=== PATIENT | male | born 1995 | race Caucasian/White ===

== ENCOUNTER 2022-08-05 10:43 | Outpatient (REF) | payer OTHER, SELFPAY ==
[2022-08-05 15:00] LABS: Lithium < 0.10 mmol/L (0.60-1.20)
== END 2022-08-05 10:44 | disposition home or self-care (01) ==
LOC: HO.WFDLDS 10:43
PROVIDERS: Visit Provider Nurse Practitioner Family
DX: F31.9 Bipolar disorder, unspecified (principal); Z79.899 Other long term (current) drug therapy
CPT/HCPCS: 36415; 80178

== ENCOUNTER 2022-08-19 10:20 | Outpatient (AMB) | payer OTHER, SELFPAY ==
[2022-08-19 10:30] VITALS: BP 110/64; PULSE 65; RESP 12; TEMP 36.2; O2SAT 99; BMI 30.5
--- NOTE | 2022-08-19 10:30 | A.OFFPC_ITS ---
Vital Signs 08/19/22 10:30 Height 5 ft 6 in Weight 189 lb 2 oz BMI 30.5 BP 110/64 Blood Pressure Location Rt brachial Position Sitting Respiration 12 Pulse 65 Pulse Source Pulse Oximeter Temp 97.2 F Temp Source Temporal Artery Scan Pulse Oximetry (%) 99 Oxygen Delivery Method Room Air Intake Visit Reasons: 2 wks Bipolar Intake Note: Patient states he just got his labs drawn right before appt. Network Intern Required: No Accompanied by: girlfriend Allergies Seasonal Allergies Allergy (Intermediate, Verified 08/19/22 11:09) Itchy Eyes Medication List - Last Reconciled 08/19/22 by Edison Pak CNP levothyroxine 112 mcg PO DAILY lithium carbonate 300 mg PO BEDTIME 30 days loratadine 10 mg PO DAILY propranolol 10 mg PO BID 30 days sertraline 50 mg PO DAILY 90 days testosterone mg implant Tobacco use date assessed: 08/05/22 Dental Screening Dental Screen Date: 08/19/22 Did you have a dental visit in the last 12 months?: Yes Did you have a dental problem in the last 6 months where you did not have access to dental care?: No Was dental information given to patient?: Patient has dentist HPI HPI Comments History of Present Illness Details 27-year-old male,?assigned female at , presents for bipolar and anxiety follow-up He was restarted on lithium 300 mg daily 2 weeks ago after he ran out of the medication for a month and half. He notes he has been taking the medication as prescribed with controlled symptoms. He reports increased energy on the medication which makes it difficulty to fall asleep. He reports current average night sleep of 4-6 hours. He notes that he was sleeping an average of 8 hours nightly while on 900 mg of [place]. He requests an increase of the medication His lithium level was low, less than 0.10 He notes he continues to have weekly therapy for mood disorders He requests physical therapy for intermittent bilateral elbow and knee pain due to hypermobile joints [facility] Medical History (Updated 08/19/22 @ 11:31 by Edison Pak CNP) ADHD Anxiety Bipolar disorder Depression Graves disease Hx of radioactive iodine thyroid ablation Hypermobile joints PTSD (post-traumatic stress disorder) Surgical History H/O mastectomy History of cochlear implant Family History Mother Psychiatric disorder Maternal Grandmother Psychiatric disorder Paternal Grandmother Diabetes Maternal Grandfather Psychiatric disorder Family/Other Psychiatric disorder Paternal Grandfather Prostate cancer Paternal Aunt Breast cancer Maternal Uncle Skin cancer Social History Housing: House Patient Tobacco Use Status: Never used Tobacco e-Cigarette/Vaping Use: Currently Using (cannabis vape) service: No Current occupational status: unemployed Cognitive needs: No Hearing needs: Yes Vision needs: No Questionnaire PHQ-9 Over the last 2 weeks, how often have you been bothered by any of the following problems? 1. Little interest or pleasure in doing things: not at all 2. Feeling down, depressed, or hopeless: not at all 3. Trouble falling or staying asleep, or sleeping too much: more than half the days 4. Feeling tired or having little energy: not at all 5. Poor appetite or overeating: not at all 6. Feeling bad about yourself - or that you are a failure or have let yourself or your family down: not at all 7. Trouble concentrating on things, such as reading the newspaper or watching television: several days 8. Moving or speaking so slowly that other people could have noticed. Or the opposite - being so fidgety or restless that you have been moving around a lot more than usual: not at all 9. Thoughts that you would be better off or of hurting yourself in some way: not at all Total score: 3 Depression Screening Interpretation: Negative Source: Developed by Drs. Carroll Stovall, Lianna Nevarez, Fernando Ferreira and colleagues, with an educational ayala from [employer]. Thrive Questionnaire Date Thrive assessed: 08/05/22 YASMIN-7 AMB Questionnaire YASMIN-7 Date YASMIN - 7 assessed: 08/19/22 Feeling nervous, anxious, or on edge: 1 = Several days Not being able to stop or control worryin = Not at all Worrying too much about different things: 1 = Several days Trouble relaxin = Several days Being so restless that it is hard to sit still: 1 = Several days Becoming easily annoyed or irritable: 0 = Not at all Feeling afraid as if something awful might happen: 0 = Not at all Total YASMIN-7 score (0-4 normal; 5-9 mild; 10-14 moderate; 15-21 severe): 4 Source: Developed by Drs. Carroll Stovall, Lianna Nevarez, Fernando Ferreira and colleagues, with an educational ayala from [employer]. Review of Systems Const Details: Const Denies chills, Denies fatigue, Denies fever(s), Denies headache(s) and Denies weakness ENT Denies change in vision, Denies dizziness, Denies headache(s), Denies hearing loss, Denies nasal congestion, Denies sinus pain, Denies sinus pressure and Denies sore throat Resp Denies cough, Denies dyspnea, Denies wheezing and Denies other (shortness of breath) Cardio Denies chest pain, Denies lightheadedness, Denies dyspnea and Denies other (palpitations) Neuro Denies dizziness, Denies headache(s), Denies numbness, Denies tingling and Denies weakness Psych Denies anxiety, Denies depression, Denies memory?loss Endo Denies fatigue Aller/Immun Denies wheezing Physical exam (Primary Care) Vital Signs: Last Vital Signs Temp 97.2 F 08/19/22 10:30 Pulse 65 08/19/22 10:30 Resp 12 08/19/22 10:30 BP 110/64 08/19/22 10:30 Pulse Ox 99 08/19/22 10:30 Oxygen Delivery Method Room Air 08/19/22 10:30 BMI result Body Mass Index 30.5 Tobacco/Smoking Status: Tobacco use Status Tobacco use date assessed 08/05/22 08/19/22 10:42 Patient Tobacco Use Status Never used Tobacco 08/19/22 10:42 e-Cigarette/Vaping Use Currently Using (cannabis 08/19/22 10:42 vape) PHQ-9: PHQ-9 Score PHQ-9: Total score 3 08/19/22 10:42 Depression Screening Interpretation: Negative Thrive Assessment: Date of Thrive Assessment Date Thrive assessed 08/05/22 08/19/22 10:42 Const Other: Const General: well developed; No acute distress Nutritional Appearance: well nourished Orientation/consciousness: patient oriented x3 HEENT Head: Yes normocephalic and Yes atraumatic Eyes General: appearance normal, both eyes and all related structures Pupils: Equal, round and reactive pupils present EOM: EOMs intact bilaterally Resp Effort & Inspection: normal respiratory effort Auscultation: clear to auscultation bilaterally Cardio Rate: regular rate Rhythm: regular rhythm Heart sounds: S1 normal heart sound present, S2 normal heart sound present, no gallops, no murmurs and no rubs Bruits: no abdominal aortic bruits and no carotid bruits Neuro General: patient oriented x3 and gait normal, no focal neuro deficit Cranial nerves: Yes Equal, round and reactive pupils present Psych Appearance: grossly normal Affect: normal affect Attitude: cooperative Thought process: Normal thought process present Assessment and Plan Assessment & Plan (1) Bipolar disorder: Code(s): F31.9 - Bipolar disorder, unspecified Plan: He reports controlled symptoms on current lithium dose. He reports increased energy on the medication which makes it difficulty to fall asleep. He reports current average night sleep of 4-6 hours. He notes that he was sleeping an average of 8 hours nightly while on 900 mg of [place]. He requests an increase of the medication [place] level before initiation of current regimen was low, less than 0.10 He had lithium blood work done today Will review results and increase dose to 600 mg if low or within therapeutic range Advised to get lithium level blood work done in 2 weeks and then two weeks later (1-2 days before next visit) Follow-up in 1 month or return sooner with new or worsening symptoms Verbalized understanding and agreed with treatment plan. (2) Anxiety: Code(s): F41.9 - Anxiety disorder, unspecified Plan: PHQ-9 and YASMIN-7 scores are normal Continue to take sertraline, propranolol, and lithium as prescribed Routine exercise encouraged Continue follow-up with therapist as planned Return in 1 month or sooner with worsening or new symptoms Verbalized understanding and agreed with treatment plan. (3) Hypermobile joints: Code(s): M24.9 - Joint derangement, unspecified Plan: He requests physical therapy for intermittent bilateral elbow and knee pain due to hypermobile joints Physical therapy referral made May take Tylenol for pain or discomfort Warm/cold compresses encouraged Follow-up with worsening or new symptoms Verbalized understanding and agreed with treatment plan Orders: Orders PT Evaluation and Treatment Today M24.9 - Joint derangement, unspecified [place] 2 Weeks F31.9 - Bipolar disorder, unspecified [place] 4 Weeks F31.9 - Bipolar disorder, unspecified Coding Level of Care Code Est Pt Level 3 (19372) Diagnoses Bipolar disorder F31.9 Anxiety F41.9 Hypermobile joints M24.9 Time Spent (min) 25
== END 2022-08-19 11:28 | disposition home or self-care (01) ==
PROVIDERS: PCP Nurse Practitioner Family; Visit Provider Nurse Practitioner Family
DX: F31.9 Bipolar disorder, unspecified (principal); F41.9 Anxiety disorder, unspecified; M24.9 Joint derangement, unspecified
CPT/HCPCS: 99213

== ENCOUNTER 2022-08-19 10:26 | Outpatient (REF) | payer OTHER, SELFPAY ==
[2022-08-19 14:26] LABS: Hematocrit 46.8 % (42.0-52.0); Hemoglobin 16.2 g/dl (14.0-18.0); Mean Corpuscular HGB Conc 34.6 g/dl (31.0-36.0); Mean Corpuscular Hemoglobin 30.5 pg (27.0-33.0); Mean Corpuscular Volume 88.1 fL (80.0-98.0); Mean Platelet Volume 10.6 fL (9.4-12.4); Platelet Count 232 X10*3/uL (160-400); Red Blood Count 5.31 X10*6/uL (4.60-5.80); Red Cell Distribution Width 12.3 % (11.0-16.0); White Blood Count 8.5 X10*3/uL (4.8-10.8)
[2022-08-19 14:43] LABS: Lithium 0.24 mmol/L (0.60-1.20)
[2022-08-19 14:55] LABS: Alanine Aminotransferase 28 U/L (0-40); Albumin Level 4.3 g/dL (3.5-5.0); Alkaline Phosphatase 65 U/L (39-117); Anion Gap 12 (12-20); Aspartate Amino Transferase 22 U/L (5-37); Bilirubin Total 0.7 mg/dL (0.0-1.0); Blood Urea Nitrogen 9 mg/dL (9-16); Carbon Dioxide 23 mmol/L (22-29); Chloride 108 mmol/L (96-108); Cholesterol 117 mg/dL; Estimated Glomerular Filt Rate > 60; Glucose Fasting 86 mg/dL (60-99); HDL Cholesterol 40 mg/dL; LDL Cholesterol Calculated 54 mg/dl; Potassium 4.2 mmol/L (3.3-5.1); Sodium 139 mmol/L (135-145); Total Protein 7.2 g/dL (6.5-8.0); Triglycerides 116 mg/dL
[2022-08-19 14:59] LABS: TSH reflex Free T4 6.26 uIU/mL (0.32-4.0)
[2022-08-19 15:38] LABS: Free T4 (Free Thyroxine) 0.99 ng/dL (0.71-1.85)
== END 2022-08-19 10:27 | disposition home or self-care (01) ==
LOC: HO.WFDLDS 10:26
PROVIDERS: Visit Provider Nurse Practitioner Family
DX: Z00.00 Encounter for general adult medical examination without abnormal findings (principal); F31.9 Bipolar disorder, unspecified
CPT/HCPCS: 36415; 80053; 80061; 80178; 84439; 84443; 85027

== ENCOUNTER 2022-09-03 10:00 | Outpatient (REF) | payer OTHER, SELFPAY ==
[2022-09-03 11:45] LABS: Appearance Urine Clear; Color Urine Yellow; Glucose Urine UA Negative (Negative); Leukocyte Esterase Urine Small (1+) (Negative); Nitrite Urine Negative (Negative); Specific Gravity - Urine 1.015 (1.005-1.025); UMIC TRIGGER UACC YES; Urine Blood Negative (Negative); Urine Ketones Negative (Negative); Urine Protein Negative (Neg-Trace)
[2022-09-03 11:58] LABS: Bacteria Urine Trace (None Seen); Hyaline Casts Urine 0-2 /LPF (0-2); RBC Urine 0-2 /HPF (0-2); Squamous Epithelial Cell Urine 0-2 /HPF (0-2); UACC Culture Trigger YES; WBC Urine 0-5 /HPF (0-5)
[2022-09-03 12:09] LABS: Lithium 0.25 mmol/L (0.60-1.20)
== END 2022-09-03 10:01 | disposition home or self-care (01) ==
LOC: HO.WFDLDS 10:00
PROVIDERS: Visit Provider Nurse Practitioner Family
DX: Z00.00 Encounter for general adult medical examination without abnormal findings (principal); F31.9 Bipolar disorder, unspecified; R82.90 Unspecified abnormal findings in urine
CPT/HCPCS: 36415; 80178; 81001; 87086

== ENCOUNTER 2022-09-13 10:09 | Outpatient (REF) | payer OTHER, SELFPAY ==
[2022-09-13 12:24] LABS: Lithium 0.49 mmol/L (0.60-1.20)
== END 2022-09-13 10:10 | disposition home or self-care (01) ==
LOC: HO.WFDLDS 10:09
PROVIDERS: Visit Provider Nurse Practitioner Family
DX: F31.9 Bipolar disorder, unspecified (principal); Z79.899 Other long term (current) drug therapy
CPT/HCPCS: 36415; 80178

== ENCOUNTER 2022-09-16 09:53 | Outpatient (AMB) | payer OTHER, SELFPAY ==
--- NOTE | 2022-09-16 10:03 | MHC.PC.OV ---
Vital Signs 09/16/22 10:05 Height 5 ft 6 in Weight 188 lb 6 oz BMI 30.4 BP 122/78 Blood Pressure Location Lt brachial Position Sitting Pulse 58 Pulse Source Pulse Oximeter Temp 96.9 F Temp Source Oral Pulse Oximetry (%) 98 Intake Visit Reasons: 1 mos Bipolar, anxiety Intake Note: Patient is here for one month follow up on bipolar anxiety. Allergies Seasonal Allergies Allergy (Intermediate, Verified 09/16/22 10:20) Itchy Eyes Medication List - Last Reconciled 09/16/22 by Edison Pak CNP levothyroxine 125 mcg PO DAILY 30 days lithium carbonate 600 mg PO BEDTIME 30 days loratadine 10 mg PO DAILY propranolol 10 mg PO BID 30 days sertraline 50 mg PO DAILY 90 days testosterone mg implant Tobacco use date assessed: 09/16/22 Dental Screening Dental Screen Date: 09/16/22 Did you have a dental visit in the last 12 months?: No Did you have a dental problem in the last 6 months where you did not have access to dental care?: No Was dental information given to patient?: No HPI HPI Comments History of Present Illness Details 27-year-old male,?assigned female at , presents for bipolar and anxiety follow-up. He was started on lithium at the end of July. He is currently on 600 mg of lithium at bedtime. He is also on Sertraline and propranolol for anxiety. He notes he has been taking his medications as prescribed. He states his mood have improved and has been stable. His lithium levels have been trending up; current level is 0.49. His TSH was elevated almost a month ago. He was was going to contact his marketing account executive for adjustment of his levothyroxine. However, he states he has not heard back from them. [facility] Medical History ADHD Anxiety Bipolar disorder Depression Graves disease Hx of radioactive iodine thyroid ablation Hypermobile joints PTSD (post-traumatic stress disorder) Surgical History H/O mastectomy History of cochlear implant Family History Mother Psychiatric disorder Maternal Grandmother Psychiatric disorder Paternal Grandmother Diabetes Maternal Grandfather Psychiatric disorder Family/Other Psychiatric disorder Paternal Grandfather Prostate cancer Paternal Aunt Breast cancer Maternal Uncle Skin cancer Social History Housing: House Patient Tobacco Use Status: Never used Tobacco e-Cigarette/Vaping Use: Currently Using (cannabis vape) service: No Current occupational status: unemployed Cognitive needs: No Hearing needs: Yes Vision needs: No Questionnaire PHQ-9 Over the last 2 weeks, how often have you been bothered by any of the following problems? 1. Little interest or pleasure in doing things: not at all 2. Feeling down, depressed, or hopeless: not at all 3. Trouble falling or staying asleep, or sleeping too much: several days 4. Feeling tired or having little energy: not at all 5. Poor appetite or overeating: not at all 6. Feeling bad about yourself - or that you are a failure or have let yourself or your family down: not at all 7. Trouble concentrating on things, such as reading the newspaper or watching television: several days 8. Moving or speaking so slowly that other people could have noticed. Or the opposite - being so fidgety or restless that you have been moving around a lot more than usual: not at all 9. Thoughts that you would be better off or of hurting yourself in some way: not at all Total score: 2 Depression Screening Interpretation: Negative Source: Developed by Drs. Carroll Stovall, Lianna Nevarez, Fernando Ferreira and colleagues, with an educational ayala from [employer]. Thrive Questionnaire Date Thrive assessed: 08/05/22 YASMIN-7 AMB Questionnaire YASMIN-7 Date YASMIN - 7 assessed: 09/16/22 Feeling nervous, anxious, or on edge: 0 = Not at all Not being able to stop or control worryin = Not at all Worrying too much about different things: 0 = Not at all Trouble relaxin = Several days Being so restless that it is hard to sit still: 1 = Several days Becoming easily annoyed or irritable: 0 = Not at all Feeling afraid as if something awful might happen: 0 = Not at all Total YASMIN-7 score (0-4 normal; 5-9 mild; 10-14 moderate; 15-21 severe): 2 Source: Developed by Drs. Carroll Stovall, Lianna Nevarez, Fernando Ferreira and colleagues, with an educational ayala from [employer]. Review of Systems Const Details: Const Denies chills, Denies fatigue, Denies fever(s), Denies headache(s) and Denies weakness ENT Denies dizziness and Denies headache(s) Card Denies chest pain, Denies lightheadedness, Denies dyspnea and Denies other (Palpitations) Resp Denies cough, Denies dyspnea, Denies wheezing and Denies other ( shortness of breath) GI Denies abdominal pain, Denies melena, Denies hematochezia, Denies change in bowel habits, Denies dyspepsia and Denies nausea Denies hematuria and Denies dysuria Musc Denies abnormal gait, Denies myalgias, Denies arthralgias, Denies numbness and Denies tingling Skin/Breast Denies rash, Denies unusual bruising and Denies wounds Neuro Denies abnormal gait, Denies dizziness, Denies headache(s), Denies memory loss, Denies numbness, Denies Sensory deficit (Neuro), Denies tingling and Denies weakness Psych Denies anxiety, Denies depression, Denies memory loss Endo Denies cold intolerance, Denies fatigue, Denies heat intolerance, Denies polydipsia and Denies polyuria Aller/Immun Denies wheezing Physical exam (Primary Care) Vital Signs: Last Vital Signs Temp 96.9 F 09/16/22 10:05 Pulse 58 09/16/22 10:05 BP 122/78 09/16/22 10:05 Pulse Ox 98 09/16/22 10:05 BMI result Body Mass Index 30.4 Tobacco/Smoking Status: Tobacco use Status Tobacco use date assessed 09/16/22 09/16/22 10:16 Patient Tobacco Use Status Never used Tobacco 09/16/22 10:05 e-Cigarette/Vaping Use Currently Using (cannabis 09/16/22 10:05 vape) PHQ-9: PHQ-9 Score PHQ-9: Total score 2 09/16/22 10:16 Depression Screening Interpretation: Negative Thrive Assessment: Date of Thrive Assessment Date Thrive assessed 08/05/22 09/16/22 10:05 Const Other: General: no acute distress and well developed Nutritional Appearance: well nourished Orientation/consciousness: patient oriented x3 [facility] Head: Yes normocephalic and Yes atraumatic Eyes General: appearance normal, both eyes and all related structures Pupils: Equal, round and reactive pupils present EOM: EOMs intact bilaterally Resp Effort & Inspection: normal respiratory effort Auscultation: clear to auscultation bilaterally Cardio Rate: regular rate Rhythm: regular rhythm Heart sounds: S1 normal heart sound present, S2 normal heart sound present, no gallops, no murmurs and no rubs GI Palpation (GI): No Abdominal aortic bruit present, Soft to palpation, nontender, No hepatosplenomegaly present and No Rebound tenderness present Auscultation: normal bowel sounds General: Yes no CVA tenderness Back/Spine/Pelvis Back: no CVA tenderness Cervical Spine: cervical ROM normal and No Cervical spine tenderness Thoracic/Lumbar Spine: thoraco-lumbar ROM normal, No pain with thoraco-lumbar ROM, No thoracic spinal tenderness and No lumbar spinal tenderness Extrem General: Yes normal to inspection, No edema and No calf tenderness Skin General: warm and dry. Normal skin color. Normal skin turgor Lesions: no lesions Rashes: no rashes Neuro General: patient oriented x3, gait normal and no focal neuro deficit Cranial nerves: Yes Equal, round and reactive pupils present Cognition (Neuro): normal cognition Gait exam (Neuro): Normal gait present Sensory Exam: No Sensory deficit (Neuro) Psych Appearance: grossly normal Affect: normal affect Attitude: cooperative Thought process: Normal thought process present Assessment and Plan Assessment & Plan (1) Bipolar disorder: Code(s): F31.9 - Bipolar disorder, unspecified Plan: He reports stable and improved mood on current treatment regimen Continue to take lithium, sertraline, and propranolol as prescribed Routine exercise encouraged [place] levels have been trending up; current level is 0.49. [place] ordered. Encouraged to get blood work done a week from last blood work. Will contact patient with results and arrange follow-up plan. Return with new or worsening symptoms Verbalized understanding and agreed with the treatment plan. (2) Anxiety: Code(s): F41.9 - Anxiety disorder, unspecified Plan: As above (3) Acquired hypothyroidism: Code(s): E03.9 - Hypothyroidism, unspecified Plan: His TSH was elevated almost a month ago. He was was going to contact his marketing account executive for adjustment of his levothyroxine. However, he states he has not heard back from them. Recent TSH was 6.26, free T4 was normal Will increase levothyroxine to 137 mcg. Take as prescribed, in an empty stomach with a full glass of water at least 30 minutes before eating or taking or medications. Advised to get TSH/T4 blood work done a few days before next visit Follow-up in 6 weeks or return sooner with concerns or symptoms Verbalized understanding and agreed with treatment plan. Orders: Orders TSH reflex Free T4 6 Weeks E03.9 - Hypothyroidism, unspecified [place] 09/20/22 F31.9 - Bipolar disorder, unspecified Medications: New levothyroxine 137 mcg PO DAILY 30 days 30 tabs 3RF Discontinued levothyroxine Discontinued Reason: Doctor's Order 125 mcg PO DAILY 30 days 30 tabs 3RF Coding Level of Care Code Est Pt Level 3 (02303) Diagnoses Bipolar disorder F31.9 Anxiety F41.9 Acquired hypothyroidism E03.9 Time Spent (min) 25
[2022-09-16 10:05] VITALS: BP 122/78; PULSE 58; TEMP 36.1; O2SAT 98; BMI 30.4
== END 2022-09-16 10:46 | disposition home or self-care (01) ==
PROVIDERS: PCP Nurse Practitioner Family; Visit Provider Nurse Practitioner Family
DX: F31.9 Bipolar disorder, unspecified (principal); F41.9 Anxiety disorder, unspecified; E03.9 Hypothyroidism, unspecified
CPT/HCPCS: 99213

== ENCOUNTER 2022-09-20 10:51 | Outpatient (REF) | payer OTHER, SELFPAY ==
[2022-09-20 19:23] LABS: Lithium 0.55 mmol/L (0.60-1.20)
== END 2022-09-20 10:52 | disposition home or self-care (01) ==
LOC: HO.WFDLDS 10:51
PROVIDERS: Visit Provider Nurse Practitioner Family
DX: F31.9 Bipolar disorder, unspecified (principal); Z79.899 Other long term (current) drug therapy
CPT/HCPCS: 36415; 80178

== ENCOUNTER 2022-09-27 09:54 | Outpatient (REF) | payer OTHER, SELFPAY ==
[2022-09-27 12:44] LABS: TSH reflex Free T4 3.48 uIU/mL (0.32-4.0)
== END 2022-09-27 09:55 | disposition home or self-care (01) ==
LOC: HO.WFDLDS 09:54
PROVIDERS: Visit Provider Nurse Practitioner Family
DX: E03.9 Hypothyroidism, unspecified (principal); F31.9 Bipolar disorder, unspecified
CPT/HCPCS: 36415; 80178; 84443

== ENCOUNTER 2022-10-05 11:38 | Outpatient (REF) | payer OTHER, SELFPAY ==
[2022-10-05 15:04] LABS: Lithium 0.49 mmol/L (0.60-1.20)
== END 2022-10-05 11:39 | disposition home or self-care (01) ==
LOC: HO.WFDLDS 11:38
PROVIDERS: Visit Provider Nurse Practitioner Family
DX: F31.9 Bipolar disorder, unspecified (principal); Z79.899 Other long term (current) drug therapy
CPT/HCPCS: 36415; 80178

== ENCOUNTER 2022-10-18 11:35 | Outpatient (REF) | payer OTHER, SELFPAY ==
[2022-10-18 15:06] LABS: Lithium 0.53 mmol/L (0.60-1.20)
== END 2022-10-18 11:36 | disposition home or self-care (01) ==
LOC: HO.WFDLDS 11:35
PROVIDERS: Visit Provider Nurse Practitioner Family
DX: F41.9 Anxiety disorder, unspecified (principal); Z79.899 Other long term (current) drug therapy
CPT/HCPCS: 36415; 80178

== ENCOUNTER 2022-10-26 11:12 | Outpatient (REF) | payer OTHER, SELFPAY ==
[2022-10-26 15:58] LABS: Lithium 0.55 mmol/L (0.60-1.20)
[2022-10-26 16:12] LABS: TSH reflex Free T4 1.69 uIU/mL (0.32-4.0)
== END 2022-10-26 11:13 | disposition home or self-care (01) ==
LOC: HO.WFDLDS 11:12
PROVIDERS: Visit Provider Nurse Practitioner Family
DX: E03.9 Hypothyroidism, unspecified (principal); F31.9 Bipolar disorder, unspecified; Z79.899 Other long term (current) drug therapy
CPT/HCPCS: 36415; 80178; 84443

== ENCOUNTER 2022-10-29 12:00 | Outpatient (RCR) | payer OTHER, SELFPAY ==
--- NOTE | 2022-10-06 13:16 | MHC.PT.EP ---
[facility] [place] Office [place] Office [place] Office [address] William White [address] [phone] F: [phone] F: [phone] F: [phone] F: [phone] Physical Therapy Plan of Care Date of Evaluation: Date of Surgery: Diagnosis: BILATERAL KNEE PAIN, JOINT DERANGEMENT Assessment: 27 YO MALE, PER Pt BORN FEMALE, REF TO PT FOR RAINE KNEE PAIN/ INTERNAL DERANGEMENT- Rt KNEE INJURY IN 06/2022 AND Lt HIP FLEXOR STRAIN 07/2022, BOTH SUSTAINED WHILE PLAYING SOFTBALL. THE Pt HAS DECENT AROM IN LEs, MILD HIP/ POSTERIOR CHAIN TISSUE TENSION, (+) STRENGTH AND LUMBOPELVIC/PROX LEs INSTABILITY, TIGHT LATERAL PATELLAE, AND FLUCTUATING LEVELS OF Rt > Lt KNEE PAIN. FUNCTIONALLY, THE Pt IS LIMITED W DEEP SQUATTING, PROLONGED STANDING, RUNNING/ SPORTS, AND PHYSICALLY DEMANDING ADLs. HE WOULD BENEFIT FROM PROGRESSIVE THER EXER ADDRESSING STABILITY, PROPRIOCEPTION, LATERAL PATELLAR MOBS, AND PAIN MGMT. Frequency and Duration: The patient will be seen 2 x WK x 4 WKS Short Term Goals: * DECR RAINE KNEE PAIN TO 2-3/10 AT MAX *IMPROVE HS/ CALF FLEXIB *INITIATE HEP FOR LUMBOPELVIC STAB/ PROX LEs STRENGTH * Pt DEMON APPROP SQUAT [facility] Program And Research Coordinator Goals: *Pt INDEP W HEP/ WARM -UP EXER, AND SELF-SX MGMT TECHN *Pt RESUME REG ADLs -> IMPROVED LEFI SCORE (AT EVAL 67/80) * IMPROVE LEs STRENGTH BY 1/2 TO 1 GRADE Treatment Plan: Modalities to reduce pain, spasms and effusion. Manual therapy to restore motion and function. Therapeutic exercise to improve strength and flexibility. Neuromuscular re-education for posture and balance. Therapeutic activities to return to functional activities of daily living. Electronically signed by: MEHRAN RANDOLPHPT Please sign and return to therapist. Thank you for your referral.
--- NOTE | 2022-11-25 07:27 | MHC.PT.DC ---
[facility] [place] [facility] [place] Office [place] Office [address] William White [address] [facility] [phone] F: [phone] F: [phone] F: [phone] F: [phone] Physical Therapy Discharge Report Diagnosis: BILATERAL KNEE PAIN, JOINT DERANGEMENT Date of Surgery: Date of Evaluation: 10/06/22 Date of Discharge: 11/25/22 Treatments to Date: 5 Cancellations to Date: 3 No Shows to Date: 0 Discharge Status: Achieved Goals Improved Function Independent with HEP Discharge Summary: THE Pt HAS PROGRESSED NICELY IN PT- HE WAS PAINFREE AT LAST PT APPT, INDEP W HEP, AND HAS BEEN ABLE TO RESUME HIS REG ADLs/ FITNESS. THE Pt MET HIS PT GOALS AND IS D/C'D THIS DATE FROM PT. Electronically signed by: MEHRAN RANDOLPH,PT Please sign and return to therapist. Thank you for your referral.
== END 2022-11-25 07:28 | disposition home or self-care (01) ==
LOC: HO.PT 12:00
PROVIDERS: PCP Nurse Practitioner Family; Visit Provider Nurse Practitioner Family
DX: M24.9 Joint derangement, unspecified (principal); M25.521 Pain in right elbow; M25.522 Pain in left elbow; M25.561 Pain in right knee; M25.562 Pain in left knee
CPT/HCPCS: 97110; 97140; 97162; 97530

== ENCOUNTER 2022-11-12 12:44 | Outpatient (AMB) | payer OTHER, SELFPAY ==
--- NOTE | 2022-11-12 12:50 | MHC.PC.OV ---
Vital Signs 11/12/22 12:51 Height 5 ft 6 in Weight 186 lb 2 oz BMI 30.0 BP 120/62 Blood Pressure Location Lt brachial Position Sitting Respiration 12 Pulse 55 Pulse Source Pulse Oximeter Temp 97.9 F Temp Source Oral Pulse Oximetry (%) 99 Oxygen Delivery Method Room Air Intake Visit Reasons: hypothyroidism Intake Note: Patient is here for a 3 month follow up, adjusted medication. Allergies Seasonal Allergies Allergy (Intermediate, Verified 11/12/22 13:29) Itchy Eyes Medication List - Last Reconciled 11/12/22 by Edison Pak CNP levothyroxine 137 mcg PO DAILY 30 days lithium carbonate 600 mg PO BEDTIME 30 days loratadine 10 mg PO DAILY propranolol 10 mg PO BID 30 days sertraline 50 mg PO DAILY 90 days testosterone mg implant Tobacco use date assessed: 11/12/22 HPI HPI Comments History of Present Illness Details 27-year-old male,?assigned female at presents for hypothyroidism follow-up. He is on levothyroxine 137 mcg daily. He admits to take his medication as prescribed. His recent TSH was normal, 1.69 His previous TSH was elevated, 6.26, free T4 was normal. He was unable to get in contact with his e commerce director. Therefore, his PCP increased his levothyroxine increased to 137 mcg. He was advised to follow-up in 6 weeks. He states that he has a telehealth appointment with his e commerce director, who is from [place], next week. He offers no complaints and denies acute symptoms at this time. [facility] Medical History ADHD Anxiety Bipolar disorder Depression Graves disease Hx of radioactive iodine thyroid ablation Hypermobile joints PTSD (post-traumatic stress disorder) Surgical History H/O mastectomy History of cochlear implant Family History Mother Psychiatric disorder Maternal Grandmother Psychiatric disorder Paternal Grandmother Diabetes Maternal Grandfather Psychiatric disorder Family/Other Psychiatric disorder Paternal Grandfather Prostate cancer Paternal Aunt Breast cancer Maternal Uncle Skin cancer Social History Housing: House Patient Tobacco Use Status: Never used Tobacco e-Cigarette/Vaping Use: Currently Using (cannabis vape) service: No Current occupational status: unemployed Cognitive needs: No Hearing needs: Yes Vision needs: No Questionnaire Thrive Questionnaire Date Thrive assessed: 08/05/22 YASMIN-7 AMB Questionnaire YASMIN-7 Date YASMIN - 7 assessed: 09/16/22 Source: Developed by Drs. Carroll Stovall, Lianna Nevarez, Fernando Ferreira and colleagues, with an educational ayala from [employer]. Review of Systems Const Details: Const Denies chills, Denies fatigue, Denies fever(s), Denies headache(s) and Denies weakness ENT Denies dizziness and Denies headache(s) Card Denies chest pain, Denies lightheadedness, Denies dyspnea and Denies other (Palpitations) Resp Denies cough, Denies dyspnea, Denies wheezing and Denies other ( shortness of breath) GI Denies abdominal pain, Denies melena, Denies hematochezia, Denies change in bowel habits, Denies dyspepsia and Denies nausea Denies hematuria and Denies dysuria Musc Denies abnormal gait, Denies myalgias, Denies arthralgias, Denies numbness and Denies tingling Skin/Breast Denies rash, Denies unusual bruising and Denies wounds Neuro Denies abnormal gait, Denies dizziness, Denies headache(s), Denies memory loss, Denies numbness, Denies Sensory deficit (Neuro), Denies tingling and Denies weakness Psych Denies anxiety, Denies depression, Denies memory loss Endo Denies cold intolerance, Denies fatigue, Denies heat intolerance, Denies polydipsia and Denies polyuria Aller/Immun Denies wheezing Physical exam (Primary Care) Vital Signs: Last Vital Signs Temp 97.9 F 11/12/22 12:51 Pulse 55 11/12/22 12:51 Resp 12 11/12/22 12:51 BP 120/62 11/12/22 12:51 Pulse Ox 99 11/12/22 12:51 Oxygen Delivery Method Room Air 11/12/22 12:51 BMI result Body Mass Index 30.0 Tobacco/Smoking Status: Tobacco use Status Tobacco use date assessed 11/12/22 11/12/22 12:58 Patient Tobacco Use Status Never used Tobacco 11/12/22 12:58 e-Cigarette/Vaping Use Currently Using (cannabis 11/12/22 12:58 vape) Thrive Assessment: Date of Thrive Assessment Date Thrive assessed 08/05/22 11/12/22 12:58 Const Other: General: no acute distress and well developed Nutritional Appearance: well nourished Orientation/consciousness: patient oriented x3 HENMT Head: Yes normocephalic and Yes atraumatic Eyes General: appearance normal, both eyes and all related structures Pupils: Equal, round and reactive pupils present EOM: EOMs intact bilaterally Resp Effort & Inspection: normal respiratory effort Auscultation: clear to auscultation bilaterally Cardio Rate: regular rate Rhythm: regular rhythm Heart sounds: S1 normal heart sound present, S2 normal heart sound present, no gallops, no murmurs and no rubs GI Palpation (GI): No Abdominal aortic bruit present, Soft to palpation, nontender, No hepatosplenomegaly present and No Rebound tenderness present Auscultation: normal bowel sounds General: Yes no CVA tenderness Back/Spine/Pelvis Back: no CVA tenderness Cervical Spine: cervical ROM normal and No Cervical spine tenderness Thoracic/Lumbar Spine: thoraco-lumbar ROM normal, No pain with thoraco-lumbar ROM, No thoracic spinal tenderness and No lumbar spinal tenderness Extrem General: Yes normal to inspection, No edema and No calf tenderness Skin General: warm and dry. Normal skin color. Normal skin turgor Lesions: no lesions Rashes: no rashes Trauma: no lacerations or abrasions Wounds: no wounds Nails: normal Neuro General: patient oriented x3, gait normal and no focal neuro deficit Cranial nerves: Yes Equal, round and reactive pupils present Cognition (Neuro): normal cognition Gait exam (Neuro): Normal gait present Sensory Exam: No Sensory deficit (Neuro) Psych Appearance: grossly normal Affect: normal affect Attitude: cooperative Thought process: Normal thought process present Assessment and Plan Assessment & Plan (1) Acquired hypothyroidism: Code(s): E03.9 - Hypothyroidism, unspecified Plan: Recent TSH level is normal, 1.69 Continue with current treatment regimen Follow-up with endocrinology as planned PCP may manage hypothyroidism per patient's preference due to out of state e commerce director Encouraged to get lithium blood work done before next visit Follow-up in 1 month for anxiety, depression, and a complete physical exam Return sooner with symptoms or concerns Verbalized understanding and agreed with treatment plan. Coding Level of Care Code Est Pt Level 2 (14392) Diagnoses Acquired hypothyroidism E03.9
[2022-11-12 12:51] VITALS: BP 120/62; PULSE 55; RESP 12; TEMP 36.6; O2SAT 99
== END 2022-11-12 13:54 | disposition home or self-care (01) ==
PROVIDERS: PCP Nurse Practitioner Family; Visit Provider Nurse Practitioner Family
DX: E03.9 Hypothyroidism, unspecified (principal)
CPT/HCPCS: 99213

== ENCOUNTER 2022-12-20 08:26 | Outpatient (AMB) | payer OTHER, SELFPAY ==
--- NOTE | 2022-12-20 08:14 | A.OFFPC_ITS ---
Vital Signs 12/20/22 08:30 Height 5 ft 6 in Weight 180 lb 6 oz BMI 29.1 BP 102/60 Blood Pressure Location Lt brachial Position Sitting Respiration 13 Pulse 78 Pulse Source Pulse Oximeter Pulse Oximetry (%) 99 Oxygen Delivery Method Room Air Intake Visit Reasons: CPE, anxiety, bipolar Intake Note: Patient is here for a physical exam and a follow up regarding anxiety and bipolar disorder. Patient's last TSH level was 1.69 on 10/26/22 and last lab panel was completed on 08/19/22. Patient would like to discuss if he should be taking vitamin D for seasonal changes. Hand Singer Required: No Accompanied by: Self / Same As Patient Allergies Seasonal Allergies Allergy (Intermediate, Verified 12/20/22 08:45) Itchy Eyes Medication List - Last Reconciled 12/20/22 by Edison Pak CNP levothyroxine 137 mcg PO DAILY 30 days lithium carbonate 600 mg PO BEDTIME 30 days loratadine 10 mg PO DAILY propranolol 10 mg PO BID 30 days sertraline 50 mg PO DAILY 90 days testosterone mg implant Tobacco use date assessed: 12/20/22 HPI HPI Comments History of Present Illness Details 27-year-old male, assigned female at bir th, presents for a complete physical exam and anxiety, and bipolar follow-up. He notes that he has been taking his medications as prescribed. He reports controlled anxiety and depression symptoms. He offers no complaints and denies acute symptoms at this time. He is followed by a therapist every other week for mental illness. He recently established with a therapist and has a followed up appointment scheduled this week or next week. He is followed by Dr. Kelly, well shooter from [place] for hypothyroidism every 6 months. His last visit was telehealth on 11/2022. He notes that he has to get blood work done. He notes that he is sexually active, in a monogamous relationship, and has no concerns for STD. He requests STD testing. [facility] Medical History Hypermobile joints Graves disease ADHD PTSD (post-traumatic stress disorder) Bipolar disorder Depression Anxiety Hx of radioactive iodine thyroid ablation Surgical History H/O mastectomy History of cochlear implant Family History Mother Psychiatric disorder Maternal Grandmother Psychiatric disorder Paternal Grandmother Diabetes Maternal Grandfather Psychiatric disorder Family/Other Psychiatric disorder Paternal Grandfather Prostate cancer Paternal Aunt Breast cancer Maternal Uncle Skin cancer Social History Household Members: Friend(s) Housing: House Alcohol intake: current Alcohol intake frequency: other Alcohol type: beer Patient Tobacco Use Status: Never used Tobacco e-Cigarette/Vaping Use: Currently Using (cannabis vape) Substance Use Type: Marijuana service: No Current occupational status: unemployed Current occupational exposures/hazards: No Sexual orientation: Unable to collect Gender identity: Unable to collect Cognitive needs: No Hearing needs: Yes Vision needs: No Questionnaire PHQ-9 Over the last 2 weeks, how often have you been bothered by any of the following problems? 1. Little interest or pleasure in doing things: several days 2. Feeling down, depressed, or hopeless: not at all 3. Trouble falling or staying asleep, or sleeping too much: nearly every day 4. Feeling tired or having little energy: several days 5. Poor appetite or overeating: not at all 6. Feeling bad about yourself - or that you are a failure or have let yourself or your family down: not at all 7. Trouble concentrating on things, such as reading the newspaper or watching television: more than half the days 8. Moving or speaking so slowly that other people could have noticed. Or the opposite - being so fidgety or restless that you have been moving around a lot more than usual: not at all 9. Thoughts that you would be better off or of hurting yourself in some way: not at all Total score: 7 Depression Screening Interpretation: Positive Depression Screening Follow-up: Existing condition and In treatment Depression Screening Done: Yes [id number] - PHQ-9 Billing: Yes Source: Developed by Drs. Carroll Stovall, Lianna Nevarez, Fernando Ferreira and colleagues, with an educational ayala from [employer]. Thrive Questionnaire Date Thrive assessed: 12/20/22 I am a: Patient What is your living situation today?: I have a steady place to live Within the past 12 months, did the food you bought not last and you didn't have the money to get more?: Never true Within the past 12 months, did you worry whether your food would run out before you got money to buy more?: Never true Do you have trouble paying for medicines?: No Do you have trouble getting transportation to medical appointments?: No Do you have trouble paying your heating and electricity bill?: No Do you have trouble taking care of your child, family member or friend?: No Do you have trouble with day-to-day activities such as bathing, preparing meals, shopping, managing finances, etc.?: No Are you currently unemployed and looking for a job?: No Are you interested in more education?: No Please select the resources that you would like help with: None Currently or been in a relationship where the following occur: no concerns reported AUDIT C Alcohol Use Questionnaire (AUDIT-C) 1. How often do you have a drink containing alcohol?: Monthly or less 2. How many drinks containing alcohol do you have on a typical day when you are drinking?: 1 or 2 3. How often do you have six or more drinks on one occasion?: Never Total Score: 1 YASMIN-7 AMB Questionnaire YASMIN-7 Date YASMIN - 7 assessed: 12/20/22 Feeling nervous, anxious, or on edge: 1 = Several days Not being able to stop or control worryin = Not at all Worrying too much about different things: 1 = Several days Trouble relaxin = Nearly every day Being so restless that it is hard to sit still: 2 = More than half the days Becoming easily annoyed or irritable: 1 = Several days Feeling afraid as if something awful might happen: 0 = Not at all Total YASMIN-7 score (0-4 normal; 5-9 mild; 10-14 moderate; 15-21 severe): 8 Source: Developed by Drs. Carroll Stovall, Lianna Nevarez, Fernando Ferreira and colleagues, with an educational ayala from [employer]. YASMIN-7 Assessment Billing YASMIN-7 Assessment Tool: YASMIN-7 Assessment [id number] Review of Systems Const Details: Denies chills, Denies fatigue, Denies fever(s), Denies headache(s) and Denies weakness HEENT Denies change in vision, Denies dizziness, Denies headache(s), Denies hearing loss, Denies nasal congestion, Denies sinus pain, Denies sinus pressure and Denies sore throat Card Denies chest pain, Denies lightheadedness, Denies dyspnea and Denies other (palpitations) Resp Denies cough, Denies dyspnea and Denies wheezing GI Denies abdominal pain, Denies melena, Denies hematochezia, Denies change in bowel habits, Denies dyspepsia and Denies nausea Denies hematuria and Denies dysuria Musc Denies abnormal gait, Denies myalgias, Denies arthralgias, Denies numbness and Denies tingling Skin/Breast Denies rash, Denies unusual bruising and Denies wounds Neuro Denies abnormal gait, Denies dizziness, Denies headache(s), Denies memory loss, Denies numbness, Denies Sensory deficit (Neuro), Denies tingling and Denies weakness Psych Denies anxiety, Denies depression and Denies memory loss Endo Denies cold intolerance, Denies fatigue, Denies heat intolerance, Denies polydipsia and Denies polyuria Hayden/Lymph Denies easy bleeding and Denies easy bruising Aller/Immun Denies wheezing Physical exam (Primary Care) Vital Signs: Last Vital Signs Pulse 78 12/20/22 08:30 Resp 13 12/20/22 08:30 BP 102/60 12/20/22 08:30 Pulse Ox 99 12/20/22 08:30 Oxygen Delivery Method Room Air 12/20/22 08:30 BMI result Body Mass Index 29.1 Tobacco/Smoking Status: Tobacco use Status Tobacco use date assessed 11/12/22 12/20/22 08:16 Patient Tobacco Use Status Never used Tobacco 12/20/22 08:16 e-Cigarette/Vaping Use Currently Using (cannabis 12/20/22 08:16 vape) Depression Screening Interpretation: Positive Depression Screening Follow-up: Existing condition and In treatment Thrive Assessment: Date of Thrive Assessment Date Thrive assessed 08/05/22 12/20/22 08:16 Currently or been in a relationship where the following occur: no concerns reported Const Other: General: no acute distress, well developed, alert and awake Nutritional Appearance: well nourished Orientation/consciousness: patient oriented x3 HENMT Head: Yes normocephalic and Yes atraumatic Ears: hearing grossly normal bilaterally and TM's normal bilaterally General nose exam: Normal external nose present and Normal nares present Mouth: Normal oral and palatal mucosa present and moist mucous membranes Teeth and gingiva: dentition normal Throat: Yes oropharynx normal Eyes Pupils: Equal, round and reactive pupils present and Pupil accommodation reflex normal EOM: EOMs intact bilaterally Neck Neck: Yes normal visual inspection, Yes no lymphadenopathy and Yes trachea midline Thyroid: Thyroid normal Carotids: no bruits Lymphatic: no lymphadenopathy noted Chest Chest palpation & inspection: normal inspection of the chest Resp Effort & Inspection: normal respiratory effort Auscultation: clear to auscultation bilaterally Cardio Rate: regular rate Rhythm: regular rhythm Heart sounds: S1 normal heart sound present, S2 normal heart sound present, no gallops, no murmurs and no rubs Bruits: no abdominal aortic bruits and no carotid bruits GI Palpation (GI): No Abdominal aortic bruit present, Soft to palpation, nontender, No hepatosplenomegaly present and No Rebound tenderness present Auscultation: normal bowel sounds General: Yes no CVA tenderness Back/Spine/Pelvis Back: no CVA tenderness Cervical Spine: cervical ROM normal and No Cervical spine tenderness Thoracic/Lumbar Spine: thoraco-lumbar ROM normal, No pain with thoraco-lumbar ROM, No thoracic spinal tenderness and No lumbar spinal tenderness Skin General: warm and dry. Normal skin color. Normal skin turgor Lesions: no lesions Rashes: no rashes Trauma: no lacerations or abrasions Wounds: no wounds Nails: normal Neuro General: patient oriented x3, gait normal and CN's II-XI intact bilaterally Cranial nerves: Yes Equal, round and reactive pupils present Cognition (Neuro): normal cognition Gait exam (Neuro): Normal gait present Motor exam (neuro): 5/5 motor strength present throughout Sensory Exam: No Sensory deficit (Neuro) Deep tendon reflexes (DTR's): Right patellar reflex intensity grade: 2+ and Left patellar reflex intensity grade: 2+ Extrem General: Yes normal to inspection, No edema and No calf tenderness Psych Appearance: grossly normal Affect: normal affect Attitude: cooperative Thought process: Normal thought process present Assessment and Plan Assessment & Plan (1) Normal physical examination, routine: Code(s): Z00.00 - Encounter for general adult medical examination without abnormal findings Plan: No significant physical restrictions or limitations noted Advised to schedule his next physical exam for an extended physical exam for a year from today Return sooner with symptoms or concerns Verbalized understanding and agreed with treatment plan. (2) Acquired hypothyroidism: Code(s): E03.9 - Hypothyroidism, unspecified Plan: Recent TSH level was normal Continue current treatment regimen Continue follow-up with Endocrinology as planned Follow-up with symptoms or concerns Verbalized understanding and agreed with treatment plan (3) Anxiety: Code(s): F41.9 - Anxiety disorder, unspecified Plan: PHQ-9 and YASMIN-7 scores revealed mild depression and anxiety Continue with current treatment regimen Continue follow-up with psych provider as planned Return with worsening or new symptoms Verbalized understanding and agreed with treatment plan (4) Bipolar disorder: Code(s): F31.9 - Bipolar disorder, unspecified Plan: As above (5) Screen for STD (sexually transmitted disease): Code(s): Z11.3 - Encounter for screening for infections with a predominantly sexual mode of transmission Plan: He notes that he is sexually active, in a monogamous relationship, and has no concerns for STD. He requests STD testing STD panel ordered. Will review results and make changes to his care plan if warranted Orders: Orders Hepatitis B,C Profile Today Z11.3 - Encounter for screening for infections with a predominantly sexual mode of transmission CT NG by PCR Today Z11.3 - Encounter for screening for infections with a predominantly sexual mode of transmission HIV Ab/Ag Today Z11.3 - Encounter for screening for infections with a predomina ntly sexual mode of transmission Syphilis Screen Today Z11.3 - Encounter for screening for infections with a predominantly sexual mode of transmission Coding Level of Care Code New Pt Prev Care [id number]([id number] Diagnoses Normal physical examination, routine Z00.00 Acquired hypothyroidism E03.9 Anxiety F41.9 Bipolar disorder F31.9 Screen for STD (sexually transmitted disease) Z11.3 Additional Codes YASMIN-7 Assessment Billing - YASMIN-7 Assessment Tool: YASMIN-7 Assessment [id number] ([id number])
[2022-12-20 08:30] VITALS: BP 102/60; PULSE 78; RESP 13; O2SAT 99; BMI 29.1
== END 2022-12-20 09:09 | disposition home or self-care (01) ==
PROVIDERS: PCP Nurse Practitioner Family; Visit Provider Nurse Practitioner Family
DX: Z00.00 Encounter for general adult medical examination without abnormal findings (principal); E03.9 Hypothyroidism, unspecified; F41.9 Anxiety disorder, unspecified; F31.9 Bipolar disorder, unspecified; Z11.3 Encounter for screening for infections with a predominantly sexual mode of transmission
CPT/HCPCS: 99385

== ENCOUNTER 2022-12-20 08:32 | Outpatient (REF) | payer OTHER, SELFPAY ==
[2022-12-20 11:13] LABS: Appearance Urine Clear; Color Urine Yellow; Glucose Urine UA Negative (Negative); Leukocyte Esterase Urine Small (1+) (Negative); Nitrite Urine Negative (Negative); UMIC TRIGGER UACC YES; Urine Blood Negative (Negative); Urine Ketones Negative (Negative); Urine Protein Negative (Neg-Trace)
[2022-12-20 11:22] LABS: Bacteria Urine None Seen (None Seen); Hyaline Casts Urine 0-2 /LPF (0-2); RBC Urine 0-2 /HPF (0-2); Squamous Epithelial Cell Urine 0-2 /HPF (0-2); UACC Culture Trigger YES; WBC Urine 0-5 /HPF (0-5)
[2022-12-20 11:33] LABS: Estimated Average Glucose 91 mg/dL; Hemoglobin A1c % 4.8 % (<6.0)
[2022-12-20 11:40] LABS: Cholesterol 122 mg/dL (<200); HDL Cholesterol 40 mg/dL (>40); LDL Cholesterol Calculated 56 mg/dL (<100); Triglycerides 134 mg/dL (<150)
[2022-12-20 11:52] LABS: Lithium 0.54 mmol/L (0.60-1.20)
[2022-12-20 11:59] LABS: HBS Num1 0.58 mIU/mL (0-7.99); HBc Num1 0.09 S/CO (0.00-0.79); HBsAGNum1 0.32 S/CO (0.00-0.99); HIV AB/AG Nonreactive (Nonreactive); HIV Num 1 0.07 S/CO (0.00-0.99); Hepatitis B Core Antibody Nonreactive (Nonreactive); Hepatitis B Surface Antigen Negative (Negative); Syphilis Screen Nonreactive (Nonreactive); ~HepC Num1 0.08 S/CO (0.00-0.79); ~Hepatitis B Surface Antibody NONREACTIVE (Nonreactive); ~Hepatitis C Antibody Nonreactive (Nonreactive)
[2022-12-20 12:10] LABS: Reflex LDLD? No
[2022-12-21 11:13] LABS: LDL Cholesterol Direct 64 mg/dL (<100)
[2022-12-23 14:33] LABS: Testosterone, Total 281 ng/dL (250-1100)
== END 2022-12-20 08:33 | disposition home or self-care (01) ==
LOC: HO.WFDLDS 08:32
PROVIDERS: Nurse Practitioner Family; Visit Provider Internal Medicine
DX: Z00.00 Encounter for general adult medical examination without abnormal findings (principal); Z11.4 Encounter for screening for human immunodeficiency virus [HIV]; F31.9 Bipolar disorder, unspecified; Z78.9 Other specified health status; Z20.2 Contact with and (suspected) exposure to infections with a predominantly sexual mode of transmission; R82.90 Unspecified abnormal findings in urine; Z79.899 Other long term (current) drug therapy
CPT/HCPCS: 36415; 80061; 80178; 81001; 83036; 83721; 84403; 85014; 86704; 86706; 86780; 86803; 87086; 87340; 87389

== ENCOUNTER 2023-01-17 13:38 | Outpatient (AMB) | payer OTHER, SELFPAY ==
--- NOTE | 2023-01-17 13:42 | A.OFFPC_ITS ---
Vital Signs 01/17/23 13:43 Height 5 ft 6 in Weight 181 lb 4 oz BMI 29.3 BP 108/60 Blood Pressure Location Rt brachial Position Sitting Respiration 13 Pulse 76 Pulse Source Pulse Oximeter Temp 97.7 F Temp Source Temporal Artery Scan Pulse Oximetry (%) 99 Oxygen Delivery Method Room Air Intake Visit Reasons: back pain Intake Note: Patient states that he thinks that was doing a task that required him to be reached out and sitting hovering over a project so he thinks that may be the cause. Patient states that pain is persistent pain and feels like a muscle is sitting in a weird spot and its more of acute pain. Patient states he tries to stretch and can feel the muscle stretch but it hasn't been doing anything. Patient states that he has been doing strenuous tasks that havent been helping problem either. 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 Accompanied by: Self / Same As Patient Allergies Seasonal Allergies Allergy (Intermediate, Verified 01/17/23 13:51) Itchy Eyes Medication List - Last Reconciled 01/17/23 by Edison Pak CNP guanfacine 1 mg PO BEDTIME levothyroxine 137 mcg PO DAILY 30 days lithium carbonate 600 mg PO BEDTIME 30 days loratadine 10 mg PO DAILY sertraline 50 mg PO DAILY 90 days testosterone mg implant Tobacco use date assessed: 12/20/22 Dental Screening Dental Screen Date: 01/17/23 Did you have a dental visit in the last 12 months?: No Did you have a dental problem in the last 6 months where you did not have access to dental care?: No Was dental information given to patient?: Yes HPI HPI Comments History of Present Illness Details 27-year-old assigned female at , pr esents with complaints of persistent right-sided mid pain. He describes the pain as achy and sharp. His symptoms have been ongoing for the past 1 week. He believed he may have strained the muscles while reaching to perform some tasks at work. He states that his work requires strenuous activities. He notes that he has rested since his symptoms started. He has been taking Tylenol, intermittently, without improvement. No fall, injury, or trauma. No tingling, numbness, or loss of sensation. No burning, pain, or discharge with urination. No bloody urine or urinary frequency. FOR[facility]LY [facility] Medical History Hypermobile joints Graves disease ADHD PTSD (post-traumatic stress disorder) Bipolar disorder Depression Anxiety Hx of radioactive iodine thyroid ablation Surgical History H/O mastectomy History of cochlear implant Family History Mother Psychiatric disorder Maternal Grandmother Psychiatric disorder Paternal Grandmother Diabetes Maternal Grandfather Psychiatric disorder Family/Other Psychiatric disorder Paternal Grandfather Prostate cancer Paternal Aunt Breast cancer Maternal Uncle Skin cancer Social History Household Members: Friend(s) Housing: House Alcohol intake: current Alcohol intake frequency: other Alcohol type: beer Patient Tobacco Use Status: Never used Tobacco e-Cigarette/Vaping Use: Currently Using (cannabis vape) Substance Use Type: Marijuana service: No Current occupational status: unemployed Current occupational exposures/hazards: No Sexual orientation: Unable to collect Gender identity: Unable to collect Cognitive needs: No Hearing needs: No Vision needs: No Questionnaire Thrive Questionnaire Date Thrive assessed: 12/20/22 YASMIN-7 AMB Questionnaire YASMIN-7 Date YASMIN - 7 assessed: 12/20/22 Source: Developed by Drs. Carroll Stovall, Lianna Nevarez, Fernando Ferreira and colleagues, with an educational ayala from [employer]. Review of Systems Const Details: Const Denies chills, Denies fatigue, Denies fever(s), Denies headache(s) and Denies weakness ENT Denies dizziness and Denies headache(s) Card Denies chest pain, Denies lightheadedness, Denies dyspnea and Denies other (Palpitations) Resp Denies cough, Denies dyspnea, Denies wheezing and Denies other ( shortness of breath) GI Denies abdominal pain, Denies melena, Denies hematochezia, Denies change in bowel habits, Denies dyspepsia and Denies nausea Denies hematuria and Denies dysuria Musc Reports as per HPI Skin/Breast Denies rash, Denies unusual bruising and Denies wounds Neuro Denies abnormal gait, Denies dizziness, Denies headache(s), Denies memory loss, Denies numbness, Denies Sensory deficit (Neuro), Denies tingling and Denies weakness Psych Denies anxiety, Denies depression, Denies memory loss Endo Denies cold intolerance, Denies fatigue, Denies heat intolerance, Denies polydipsia and Denies polyuria Aller/Immun Denies wheezing Physical exam (Primary Care) Tobacco/Smoking Status: Tobacco use Status Tobacco use date assessed 12/20/22 12/20/22 08:41 Patient Tobacco Use Status Never used Tobacco 12/20/22 08:38 e-Cigarette/Vaping Use Currently Using 12/20/22 08:38 Thrive Assessment: Date of Thrive Assessment Date Thrive assessed 12/20/22 12/20/22 08:47 Const Other: General: no acute distress and well developed Nutritional Appearance: well nourished Orientation/consciousness: patient oriented x3 HENMT Head: Yes normocephalic and Yes atraumatic Eyes General: appearance normal, both eyes and all related structures Pupils: Equal, round and reactive pupils present EOM: EOMs intact bilaterally Resp Effort & Inspection: normal respiratory effort Auscultation: clear to auscultation bilaterally Cardio Rate: regular rate Rhythm: regular rhythm Heart sounds: S1 normal heart sound present, S2 normal heart sound present, no gallops, no murmurs and no rubs GI Palpation (GI): No Abdominal aortic bruit present, Soft to palpation, nontender, No hepatosplenomegaly present and No Rebound tenderness present Auscultation: normal bowel sounds General: Yes no CVA tenderness Back/Spine/Pelvis Back: no CVA tenderness Cervical Spine: cervical ROM normal and No Cervical spine tenderness Thoracic/Lumbar Spine: thoraco-lumbar ROM normal, No pain with thoraco-lumbar ROM, No thoracic spinal tenderness and No lumbar spinal tenderness Extrem General: Yes normal to inspection, No edema and No calf tenderness Skin General: warm and dry. Normal skin color. Normal skin turgor Neuro General: patient oriented x3, gait normal and no focal neuro deficit Cranial nerves: Yes Equal, round and reactive pupils present Cognition (Neuro): normal cognition Gait exam (Neuro): Normal gait present Sensory Exam: No Sensory deficit (Neuro) Psych Appearance: grossly normal Affect: normal affect Attitude: cooperative Thought process: Normal thought process present Assessment and Plan Assessment & Plan (1) Back pain: Code(s): M54.9 - Dorsalgia, unspecified Plan: Reports persistent right-sided mid back pain for the past 1 week. No tingling, numbness, or urinary symptoms No overt signs of injury or trauma. No point tenderness Likely musculoskeletal pain although kidney stone or UTI is possible Tylenol and cyclobenzaprine ordered. Take as prescribed Warm/cold compresses encouraged Advised to avoid strenuous activities. Excuse letter given to return to work next week Tuesday Urine collected and will be sent to the lab for urinalysis/culture Return with worsening or new symptoms Verbalized understanding and agreed with treatment plan Orders: Orders UA CC w/rflx Micro + Cult Today M54.9 - Dorsalgia, unspecified Medications: New cyclobenzaprine 10 mg PO TID PRN 60 tabs 0RF muscle spasm acetaminophen (Tylenol) 650 mg (2 x 325 mg) PO Q6H PRN 60 tabs 1RF pain Coding Level of Care Code Est Pt Level 3 (51333) Diagnoses Back pain M54.9
[2023-01-17 13:43] VITALS: BP 108/60; PULSE 76; RESP 13; TEMP 36.5; O2SAT 99; BMI 29.3
== END 2023-01-17 14:30 | disposition home or self-care (01) ==
PROVIDERS: PCP Nurse Practitioner Family; Visit Provider Nurse Practitioner Family
DX: M54.9 Dorsalgia, unspecified (principal)
CPT/HCPCS: 99213

== ENCOUNTER 2023-01-17 14:06 | Outpatient (REF) | payer OTHER, SELFPAY | END 2023-01-17 14:07 | disposition home or self-care (01) | LOC: HO.LAB 14:06 | PROVIDERS: Visit Provider Nurse Practitioner Family | DX: Z13.89 Encounter for screening for other disorder (principal) ==

== ENCOUNTER 2023-03-29 09:15 | Outpatient (REF) | payer OTHER, SELFPAY ==
[2023-03-29 11:25] LABS: MANUAL DIFF FLAG NO
[2023-03-29 11:46] LABS: Basophils Absolute Auto 0.1 X10*3/uL (0.0-0.2); Basophils Percent Auto 0.8 % (0-2); Eosinophils Absolute Auto 0.6 X10*3/uL (0.0-0.4); Eosinophils Percent Auto 8.3 % (0-4); Hematocrit 45.9 % (42.0-52.0); Hemoglobin 16.3 g/dl (14.0-18.0); Imm Gran Abs Auto 0.03 X10*3/uL (0.00-0.03); Imm Gran Pct Auto 0.4 % (0.0-0.4); Lymphocytes Absolute Auto 1.9 X10*3/uL (1.2-4.9); Lymphocytes Percent Auto 27.2 % (20-40); Mean Corpuscular HGB Conc 35.5 g/dl (31.0-36.0); Mean Corpuscular Hemoglobin 30.8 pg (27.0-33.0); Mean Corpuscular Volume 86.6 fL (80.0-98.0); Mean Platelet Volume 10.4 fL (9.4-12.4); Monocytes Absolute Auto 0.5 X10*3/uL (0.1-1.2); Monocytes Percent Auto 6.8 % (2-11); Neutrophils Percent Auto 56.5 % (45-73); Platelet Count 235 X10*3/uL (160-400); Red Cell Distribution Width 12.9 % (11.0-16.0); White Blood Count 7.1 X10*3/uL (4.8-10.8)
[2023-03-29 11:58] LABS: Alanine Aminotransferase 27 U/L (0-40); Albumin Level 4.3 g/dL (3.5-5.0); Alkaline Phosphatase 64 U/L (39-117); Anion Gap 11 (12-20); Aspartate Amino Transferase 26 U/L (5-37); Bilirubin Total 0.7 mg/dL (0.0-1.0); Blood Urea Nitrogen 11 mg/dL (9-16); Calcium 9.3 mg/dL (8.4-10.2); Carbon Dioxide 27 mmol/L (22-29); Chloride 106 mmol/L (96-108); Estimated Glomerular Filt Rate > 60; Glucose Random 97 mg/dL (60-115); Potassium 4.3 mmol/L (3.3-5.1); Sodium 140 mmol/L (135-145); Total Protein 7.4 g/dL (6.5-8.0)
[2023-03-29 12:05] LABS: TSH reflex Free T4 5.69 uIU/mL (0.32-4.0); Vitamin D 25-OH Total 33.7 ng/mL (>30)
[2023-03-29 12:10] LABS: Vitamin B12 444 pg/mL (200-900)
[2023-03-29 13:05] LABS: Free T4 (Free Thyroxine) 1.04 ng/dL (0.71-1.85)
== END 2023-03-29 09:16 | disposition home or self-care (01) ==
LOC: HO.WFDLDS 09:15
PROVIDERS: Referring Provider Registered Nurse Psychiatric/Mental Health; Visit Provider Nurse Practitioner Family
DX: F90.2 Attention-deficit hyperactivity disorder, combined type (principal); E03.9 Hypothyroidism, unspecified
CPT/HCPCS: 36415; 80053; 82306; 82607; 84439; 84443; 85025

== ENCOUNTER 2023-04-01 09:48 | Outpatient (AMB) | payer OTHER, SELFPAY ==
[2023-04-01 09:53] VITALS: BP 104/68; PULSE 102; RESP 13; TEMP 36.5; O2SAT 97; BMI 28.8
--- NOTE | 2023-04-01 09:53 | MHC.PC.OV ---
Vital Signs 04/01/23 09:53 Height 5 ft 6 in Weight 178 lb 4 oz BMI 28.8 BP 104/68 Blood Pressure Location Rt brachial Position Sitting Respiration 13 Pulse 102 H Pulse Source Pulse Oximeter Temp 97.7 F Temp Source Temporal Artery Scan Pulse Oximetry (%) 97 Oxygen Delivery Method Room Air Intake Visit Reasons: ? 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 Accompanied by: Self / Same As Patient Allergies house dust Allergy (Intermediate, Verified 04/01/23 10:38) Headache Seasonal Allergies Allergy (Intermediate, Verified 04/01/23 10:38) Itchy Eyes Medication List - Last Reconciled 04/01/23 by Edison Pak CNP guanfacine 2 mg PO BEDTIME levothyroxine 137 mcg PO DAILY 30 days lithium carbonate 600 mg PO BEDTIME 30 days loratadine 10 mg PO DAILY sertraline 50 mg PO DAILY 90 days testosterone mg implant Tobacco use date assessed: 04/01/23 Dental Screening Dental Screen Date: 04/01/23 Did you have a dental visit in the last 12 months?: No Did you have a dental problem in the last 6 months where you did not have access to dental care?: No Was dental information given to patient?: Yes HPI HPI Comments History of Present Illness Details 28 y/o male presents with complaints of intromittent productive cough with clear-light green mucus and lightheadedness. He symptoms started about a week ago are improving. He took two days off work, returned yesterday but went home after experiencing lightheadedness. He notes that many of his coworkers have a cough. No fever, chills, body aches, fatigue, or weakness. He as not taken an medications for his symptoms. FORMERLY [facility] Medical History Hypermobile joints Graves disease ADHD PTSD (post-traumatic stress disorder) Bipolar disorder Depression Anxiety Hx of radioactive iodine thyroid ablation Surgical History H/O mastectomy History of cochlear implant Family History Mother Psychiatric disorder Maternal Grandmother Psychiatric disorder Paternal Grandmother Diabetes Maternal Grandfather Psychiatric disorder Family/Other Psychiatric disorder Paternal Grandfather Prostate cancer Paternal Aunt Breast cancer Maternal Uncle Skin cancer Other Mental health disorder Social History Household Members: Friend(s) Housing: House Alcohol intake: current Alcohol intake frequency: other Alcohol type: beer Patient Tobacco Use Status: Never used Tobacco e-Cigarette/Vaping Use: Currently Using (cannabis vape) Substance Use Type: Marijuana service: No Current occupational status: employed 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 Carroll Stovall, Lianna Nevarez, Fernando Ferreira and colleagues, with an educational ayala from [employer]. Review of Systems Const Details: Const Denies chills, Denies fatigue, Denies fever(s), Denies headache(s) and Denies weakness ENT Reports as per HPI Card Denies chest pain, Denies lightheadedness, Denies dyspnea and Denies other (Palpitations) Resp Reports cough, Denies dyspnea, Denies wheezing and Denies other ( shortness of breath) GI Denies abdominal pain, Denies melena, Denies hematochezia, Denies change in bowel habits, Denies dyspepsia and Denies nausea Denies hematuria and Denies dysuria Musc Denies abnormal gait, Denies myalgias, Denies arthralgias, Denies numbness and Denies tingling Skin/Breast Denies rash, Denies unusual bruising and Denies wounds Neuro Denies abnormal gait, Denies dizziness, Denies headache(s), Denies memory loss, Denies numbness, Denies Sensory deficit (Neuro), Denies tingling and Denies weakness Psych Denies anxiety, Denies depression, Denies memory loss Endo Denies cold intolerance, Denies fatigue, Denies heat intolerance, Denies polydipsia and Denies polyuria Aller/Immun Denies wheezing Physical exam (Primary Care) Vital Signs: Last Vital Signs Temp 97.7 F 04/01/23 09:53 Pulse 102 H 04/01/23 09:53 Resp 13 04/01/23 09:53 BP 104/68 04/01/23 09:53 Pulse Ox 97 04/01/23 09:53 Oxygen Delivery Method Room Air 04/01/23 09:53 BMI result Body Mass Index 28.8 Tobacco/Smoking Status: Tobacco use Status Tobacco use date assessed 04/01/23 04/01/23 10:03 Patient Tobacco Use Status Never used Tobacco 04/01/23 10:03 e-Cigarette/Vaping Use Currently Using (cannabis 04/01/23 10:03 vape) Thrive Assessment: Date of Thrive Assessment Date Thrive assessed 12/20/22 04/01/23 10:03 Const Other: General: no acute distress and well developed Nutritional Appearance: well nourished Orientation/consciousness: patient oriented x3 HENMT Head is normocephalic Bilateral ear canal and TM are normal Nasal turbinates and oropharynx are pink and moist Sinuses are nontender with palpation No auricular or cervical lymphadenopathy Eyes General: appearance normal, both eyes and all related structures Pupils: Equal, round and reactive pupils present EOM: EOMs intact bilaterally Resp Effort & Inspection: normal respiratory effort Auscultation: clear to auscultation bilaterally Cardio Rate: regular rate Rhythm: regular rhythm Heart sounds: S1 normal heart sound present, S2 normal heart sound present, no gallops, no murmurs and no rubs GI Palpation (GI): No Abdominal aortic bruit present, Soft to palpation, nontender, No hepatosplenomegaly present and No Rebound tenderness present Auscultation: normal bowel sounds General: Yes no CVA tenderness Back/Spine/Pelvis Back: no CVA tenderness Cervical Spine: cervical ROM normal and No Cervical spine tenderness Thoracic/Lumbar Spine: thoraco-lumbar ROM normal, No pain with thoraco-lumbar ROM, No thoracic spinal tenderness and No lumbar spinal tenderness Extrem General: Yes normal to inspection, No edema and No calf tenderness Skin General: warm and dry. Normal skin color. Normal skin turgor Neuro General: patient oriented x3, gait normal and no focal neuro deficit Cranial nerves: Yes Equal, round and reactive pupils present Cognition (Neuro): normal cognition Gait exam (Neuro): Normal gait present Sensory Exam: No Sensory deficit (Neuro) Psych Appearance: grossly normal Affect: normal affect Attitude: cooperative Thought process: Normal thought process present Assessment and Plan Assessment & Plan (1) Viral upper respiratory illness: Code(s): J06.9 - Acute upper respiratory infection, unspecified Plan: Likely viral illness though possibly allergies. No exam evidence of bacterial infection Viral illness There is no antibiotic medication for viruses.? They must run their course.? Most average 5-7 days but 7-10 days is not uncommon and up to 14 days is still possible.? A cough is often the last symptom to resolve and this can last for weeks in some cases. Rest Hydrate well -? Drink plenty of fluids.? Especially water. Tylenol or ibuprofen for muscle aches, headache, fever/discomfort Cannot rule out COVID-19/RSV/Flu infection Nasal swab acquired and will be sent to the lab Return for new or worsening symptoms Verbalized understanding and agreed with treatment plan. Orders: Orders SARS-CoV2/FLU/RSV Today J06.9 - Acute upper respiratory infection, unspecified Coding Level of Care Code Est Pt Level 3 (90225) Diagnoses Viral upper respiratory illness J06.9
== END 2023-04-01 10:56 | disposition home or self-care (01) ==
PROVIDERS: PCP Nurse Practitioner Family; Visit Provider Nurse Practitioner Family
DX: J06.9 Acute upper respiratory infection, unspecified (principal)
CPT/HCPCS: 99213

== ENCOUNTER 2023-04-01 11:10 | Outpatient (REF) | payer OTHER, SELFPAY ==
[2023-04-01 15:52] LABS: Influenza A PCR NEGATIVE (Negative); Influenza B PCR NEGATIVE (Negative); Resp Syncy Virus RNA Qual PCR NEGATIVE (Negative); SARS COV2 PCR INHOUSE NEGATIVE (Negative)
== END 2023-04-01 11:11 | disposition home or self-care (01) ==
LOC: HO.LAB 11:10
PROVIDERS: Visit Provider Nurse Practitioner Family
DX: J06.9 Acute upper respiratory infection, unspecified (principal)
CPT/HCPCS: 0241U

== ENCOUNTER 2023-07-11 07:35 | Outpatient (REF) | payer OTHER, SELFPAY ==
[2023-07-11 11:13] LABS: MANUAL DIFF FLAG NO
[2023-07-11 11:45] LABS: Basophils Absolute Auto 0.1 X10*3/uL (0.0-0.2); Basophils Percent Auto 0.8 % (0-2); Eosinophils Absolute Auto 0.8 X10*3/uL (0.0-0.4); Eosinophils Percent Auto 9.7 % (0-4); Hematocrit 45.2 % (42.0-52.0); Hemoglobin 15.5 g/dl (14.0-18.0); Imm Gran Abs Auto 0.03 X10*3/uL (0.00-0.03); Imm Gran Pct Auto 0.4 % (0.0-0.4); Lymphocytes Absolute Auto 1.9 X10*3/uL (1.2-4.9); Lymphocytes Percent Auto 22.9 % (20-40); Mean Corpuscular HGB Conc 34.3 g/dl (31.0-36.0); Mean Corpuscular Hemoglobin 31.3 pg (27.0-33.0); Mean Corpuscular Volume 91.1 fL (80.0-98.0); Mean Platelet Volume 10.3 fL (9.4-12.4); Monocytes Absolute Auto 0.6 X10*3/uL (0.1-1.2); Monocytes Percent Auto 7.1 % (2-11); Neutrophils Percent Auto 59.1 % (45-73); Platelet Count 215 X10*3/uL (160-400); Red Blood Count 4.96 X10*6/uL (4.60-5.80); Red Cell Distribution Width 12.2 % (11.0-16.0); White Blood Count 8.4 X10*3/uL (4.8-10.8)
[2023-07-11 12:27] LABS: Alanine Aminotransferase 22 U/L (0-40); Albumin Level 4.3 g/dL (3.5-5.0); Alkaline Phosphatase 68 U/L (39-117); Anion Gap 12 (12-20); Aspartate Amino Transferase 25 U/L (5-37); Bilirubin Total 0.3 mg/dL (0.0-1.0); Blood Urea Nitrogen 14 mg/dL (9-16); Calcium 9.4 mg/dL (8.4-10.2); Carbon Dioxide 25 mmol/L (22-29); Chloride 108 mmol/L (96-108); Estimated Glomerular Filt Rate > 60; Glucose Random 100 mg/dL (60-115); Potassium 4.1 mmol/L (3.3-5.1); Sodium 141 mmol/L (135-145); Total Protein 6.9 g/dL (6.5-8.0)
[2023-07-11 12:30] LABS: Vitamin D 25-OH Total 41.6 ng/mL (>30)
[2023-07-11 12:33] LABS: Vitamin B12 231 pg/mL (200-900)
== END 2023-07-11 07:36 | disposition home or self-care (01) ==
LOC: HO.WFDLDS 07:35
PROVIDERS: Visit Provider Registered Nurse Psychiatric/Mental Health
DX: F90.2 Attention-deficit hyperactivity disorder, combined type (principal)
CPT/HCPCS: 36415; 80053; 82306; 82607; 84443; 85025

== ENCOUNTER 2023-09-08 08:18 | Outpatient (REF) | payer SELFPAY ==
[2023-09-08 11:33] LABS: Lithium 0.52 mmol/L (0.60-1.20)
== END 2023-09-08 08:19 | disposition home or self-care (01) ==
LOC: HO.WFDLDS 08:18
PROVIDERS: Registered Nurse Psychiatric/Mental Health; Visit Provider Nurse Practitioner Family
DX: F31.9 Bipolar disorder, unspecified (principal); Z01.84 Encounter for antibody response examination
CPT/HCPCS: 36415; 80178; 86787

== ENCOUNTER 2024-01-25 10:06 | Outpatient (AMB) | payer BC, SELFPAY ==
--- NOTE | 2024-01-25 10:08 | A.OFFPC_ITS ---
Vital Signs 01/25/24 10:12 Height 5 ft 6 in Weight 186 lb BMI 30.0 BP 133/72 Blood Pressure Location Rt brachial Position Sitting Respiration 12 Pulse 59 Pulse Source Pulse Oximeter Temp 97.2 F Temp Source Skin Pulse Oximetry (%) 98 Oxygen Delivery Method Room Air Intake Visit Reasons: CPE Intake Note: Cpe and patient also complaining of right thumb pain and growth x 1 months. 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 Allergies house dust Allergy (Intermediate, Verified 01/25/24 10:32) Headache Seasonal Allergies Allergy (Intermediate, Verified 01/25/24 10:32) Itchy Eyes Medication List - Last Reconciled 01/25/24 by Edison Pak CNP guanfacine 2 mg PO BEDTIME levothyroxine 137 mcg PO DAILY 30 days lithium carbonate 600 mg PO BEDTIME 30 days loratadine 10 mg PO DAILY sertraline 50 mg PO DAILY 90 days testosterone cypionate (Depo-Testosterone) 50 mg (0.25 mL) subcut QWEEK Tobacco use date assessed: 04/01/23 Dental Screening Dental Screen Date: 01/25/24 Did you have a dental visit in the last 12 months?: Yes Did you have a dental problem in the last 6 months where you did not have access to dental care?: No Was dental information given to patient?: Patient has dentist HPI HPI Comments History of Present Illness Details 27-year-old male, assigned female at bir th, presents for an extended physical exam. Acute issue(s) - Intermittent pain to the MCP joint of the right thumb about a week ago. The pain has significantly improved; currently mild and only when palpated Past Medical History - Graves disease with reactive iodine th yroid ablation 2 years ago, bilateral impaired hearing with bilateral cochlear implants, myopia, bipolar disorder 1, anxiety. Social History - Nonsmoker. Drinks 2 beers occasionally . Vape and smoke 2gm cannabis daily - Has been making healthy dietary choice s. Has not been exercising. Generally sleep well Health maintenance - Last eye exam was over 2 years ago. Re ferred to ophthalmology for routine eye care - Last dental visit was 2 months ago - Last Tdap was in 11/24/2020 - Up-to-date on the flu vaccine Specialists - Currently sees a psychiatry physician monthly - Speak with a therapist monthly [facility] Medical History Hypermobile joints Graves disease ADHD PTSD (post-traumatic stress disorder) Bipolar disorder Depression Anxiety Hx of radioactive iodine thyroid ablation Surgical History H/O mastectomy History of cochlear implant Family History Mother Psychiatric disorder Maternal Grandmother Psychiatric disorder Paternal Grandmother Diabetes Maternal Grandfather Psychiatric disorder Family/Other Psychiatric disorder Paternal Grandfather Prostate cancer Paternal Aunt Breast cancer Maternal Uncle Skin cancer Other Mental health disorder Social History Household Members: Friend(s) Housing: House Alcohol intake: current Alcohol intake frequency: other Alcohol type: beer Patient Tobacco Use Status: Never used Tobacco e-Cigarette/Vaping Use: Currently Using (cannabis vape) Substance Use Type: Marijuana service: No Current occupational status: employed 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 1. Little interest or pleasure in doing things: not at all 2. Feeling down, depressed, or hopeless: not at all 3. Trouble falling or staying asleep, or sleeping too much: not at all 4. Feeling tired or having little energy: not at all 5. Poor appetite or overeating: not at all 6. Feeling bad about yourself - or that you are a failure or have let yourself or your family down: not at all 7. Trouble concentrating on things, such as reading the newspaper or watching television: not at all 8. Moving or speaking so slowly that other people could have noticed. Or the opposite - being so fidgety or restless that you have been moving around a lot more than usual: not at all 9. Thoughts that you would be better off or of hurting yourself in some way: not at all Total score: 0 Depression Screening Interpretation: Negative Depression Screening Done: Yes 51331 - PHQ-9 Billing: Yes Source: Developed by Drs. Carroll Stovall, LiannaFernando Rogers and colleagues, with an educational ayala from [employer]. Thrive Questionnaire Date Thrive assessed: 01/25/24 I am a: Patient What is your living situation today?: I have a steady place to live Within the past 12 months, did the food you bought not last and you didn't have the money to get more?: Never true Within the past 12 months, did you worry whether your food would run out before you got money to buy more?: Never true Do you have trouble paying for medicines?: No Do you have trouble getting transportation to medical appointments?: No Do you have trouble paying your heating and electricity bill?: No Do you have trouble taking care of your child, family member or friend?: No Do you have trouble with day-to-day activities such as bathing, preparing meals, shopping, managing finances, etc.?: No Are you currently unemployed and looking for a job?: No Are you interested in more education?: No Please select the resources that you would like help with: None Currently or been in a relationship where the following occur: I choose not to answer THRIVE Score: 0 AUDIT C Alcohol Use Questionnaire (AUDIT-C) 1. How often do you have a drink containing alcohol?: 2-4 times a month 2. How many drinks containing alcohol do you have on a typical day when you are drinking?: 1 or 2 3. How often do you have six or more drinks on one occasion?: Never Total Score: 2 Score Reviewed/Action Taken: Yes YASMIN-7 AMB Questionnaire YASMIN-7 Date YASMIN - 7 assessed: 01/25/24 Feeling nervous, anxious, or on edge: 0 = Not at all Not being able to stop or control worryin = Not at all Worrying too much about different things: 0 = Not at all Trouble relaxin = Not at all Being so restless that it is hard to sit still: 0 = Not at all Becoming easily annoyed or irritable: 0 = Not at all Feeling afraid as if something awful might happen: 0 = Not at all Total YASMIN-7 score (0-4 normal; 5-9 mild; 10-14 moderate; 15-21 severe): 0 Source: Developed by Drs. Carroll Stovall, Fernando Lynne and colleagues, with an educational ayala from [employer]. YASMIN-7 Assessment Billing YASMIN-7 Assessment Tool: YASMIN-7 Assessment 09802 Review of Systems Const Details: Denies chills, Denies fatigue, Denies fever(s), Denies headache(s) and Denies weakness HEENT Denies change in vision, Denies dizziness, Denies headache(s), Denies hearing loss, Denies nasal congestion, Denies sinus pain, Denies sinus pressure and Denies sore throat Card Denies chest pain, Denies lightheadedness, Denies dyspnea and Denies other (palpitations) Resp Denies cough, Denies dyspnea and Denies wheezing GI Denies abdominal pain, Denies melena, Denies hematochezia, Denies change in bowel habits, Denies dyspepsia and Denies nausea Denies hematuria and Denies dysuria Musc Denies abnormal gait, Denies myalgias, Denies arthralgias, Denies numbness and Denies tingling Skin/Breast Denies rash, Denies unusual bruising and Denies wounds Neuro Denies abnormal gait, Denies dizziness, Denies headache(s), Denies memory loss, Denies numbness, Denies Sensory deficit (Neuro), Denies tingling and Denies weakness Psych Denies anxiety, Denies depression and Denies memory loss Endo Denies cold intolerance, Denies fatigue, Denies heat intolerance, Denies polydipsia and Denies polyuria Hayden/Lymph Denies easy bleeding and Denies easy bruising Aller/Immun Denies wheezing Physical exam (Primary Care) Vital Signs: Last Vital Signs Temp 97.2 F 01/25/24 10:12 Pulse 59 01/25/24 10:12 Resp 12 01/25/24 10:12 BP 133/72 01/25/24 10:12 Pulse Ox 98 01/25/24 10:12 Oxygen Delivery Method Room Air 01/25/24 10:12 BMI result Body Mass Index 30.0 Tobacco/Smoking Status: Tobacco use Status Tobacco use date assessed 04/01/23 01/25/24 10:14 Patient Tobacco Use Status Never used Tobacco 01/25/24 10:14 e-Cigarette/Vaping Use Currently Using (cannabis 01/25/24 10:14 vape) PHQ-9: PHQ-9 Score PHQ-9: Total score 0 01/25/24 10:14 Depression Screening Interpretation: Negative Thrive Assessment: Date of Thrive Assessment Date Thrive assessed 01/25/24 01/25/24 10:14 Currently or been in a relationship where the following occur: I choose not to answer Const Other: General: no acute distress, well developed, alert and awake Nutritional Appearance: well nourished Orientation/consciousness: patient oriented x3 HENVT Head: Yes normocephalic and Yes atraumatic Ears: hearing grossly normal bilaterally and TM's normal bilaterally General nose exam: Normal external nose present and Normal nares present Mouth: Normal oral and palatal mucosa present and moist mucous membranes Teeth and gingiva: dentition normal Throat: Yes oropharynx normal Eyes Pupils: Equal, round and reactive pupils present and Pupil accommodation reflex normal EOM: EOMs intact bilaterally Neck Neck: Yes normal visual inspection, Yes no lymphadenopathy and Yes trachea midline Thyroid: Thyroid normal Carotids: no bruits Lymphatic: no lymphadenopathy noted Chest Chest palpation & inspection: normal inspection of the chest Resp Effort & Inspection: normal respiratory effort Auscultation: clear to auscultation bilaterally Cardio Rate: regular rate Rhythm: regular rhythm Heart sounds: S1 normal heart sound present, S2 normal heart sound present, no gallops, no murmurs and no rubs Bruits: no abdominal aortic bruits and no carotid bruits GI Palpation (GI): No Abdominal aortic bruit present, Soft to palpation, nontender, No hepatosplenomegaly present and No Rebound tenderness present Auscultation: normal bowel sounds General: Yes no CVA tenderness Back/Spine/Pelvis Back: no CVA tenderness Cervical Spine: cervical ROM normal and No Cervical spine tenderness Thoracic/Lumbar Spine: thoraco-lumbar ROM normal, No pain with thoraco-lumbar ROM, No thoracic spinal tenderness and No lumbar spinal tenderness Skin General: warm and dry. Normal skin color. Normal skin turgor Lesions: no lesions Rashes: no rashes Trauma: no lacerations or abrasions Wounds: no wounds Nails: normal Neuro General: patient oriented x3, gait normal and CN's II-XI intact bilaterally Cranial nerves: Yes Equal, round and reactive pupils present Cognition (Neuro): normal cognition Gait exam (Neuro): Normal gait present Motor exam (neuro): 5/5 motor strength present throughout Sensory Exam: No Sensory deficit (Neuro) Deep tendon reflexes (DTR's): Right patellar reflex intensity grade: 2+ and Left patellar reflex intensity grade: 2+ Extrem General: Yes normal to inspection, No edema and No calf tenderness Psych Appearance: grossly normal Affect: normal affect Attitude: cooperative Thought process: Normal thought process present Coding Level of Care Code Est Pt Level 3 (52548) Est Pt Prev Care 18-39y(31698) Diagnoses Normal physical examination, routine Z00.00 Pain of right thumb M79.644 Eye exam, routine Z01.00 Laboratory tests ordered as part of a complete physical exam (CPE) Z00.00 Additional Codes YASMIN-7 Assessment Billing - YASMIN-7 Assessment Tool: YASMIN-7 Assessment 69205 ([id number]) PHQ-9 - 06078 - PHQ-9 Billing: Yes ([id number]) Assessment & Plan Assessment & Plan (1) Normal physical examination, routine: Code(s): Z00.00 - Encounter for general adult medical examination without abnormal findings Category: Medical Plan: No significant limitations noted. Continue current treatment regimen. Follow- up with psychiatrist and therapist as planned. Get blood work done a few days before next visit. Follow-up for telehealth in 2-3 weeks for labs review or sooner with symptoms or concerns. Verbalized understanding and agreed with the plan. (2) Pain of right thumb: Code(s): M79.644 - Pain in right finger(s) Category: Medical Plan: Slight tenderness of the MCP joint of the right thumb with deep palpation. No overt injury or trauma noted. Declines x-ray. May take Tylenol ibuprofen for pain or discomfort. May apply cool or warm compresses as needed. Follow-up with worsening or new symptoms. Verbalized understanding and agreed with the plan. (3) Eye exam, routine: Code(s): Z01.00 - Encounter for examination of eyes and vision without abnormal findings Category: Medical Plan: Referred to Ophthalmology for routine eye care. (4) Laboratory tests ordered as part of a complete physical exam (CPE): Code(s): Z00.00 - Encounter for general adult medical examination without abnormal findings Category: Medical Plan: Fasting labs ordered as part of a complete physical exam. Advised to fast for at least 10 hours before getting labs drawn. May drink water Verbalized understanding and agreed with treatment plan. Orders: Orders TSH reflex Free T4 Today Z00.00 - Encounter for general adult medical examination without abnormal findings Lipid Panel Today Z00.00 - Encounter for general adult medical examination without abnormal findings UA CC w/rflx Micro + Cult Today Z00.00 - Encounter for general adult medical examination without abnormal findings Referrals Ophthalmology Referral Z01.00 - Encounter for examination of eyes and vision without abnormal findings
[2024-01-25 10:12] VITALS: BP 133/72; PULSE 59; RESP 12; TEMP 36.2; O2SAT 98
== END 2024-01-25 10:49 | disposition home or self-care (01) ==
PROVIDERS: PCP Nurse Practitioner Family; Visit Provider Nurse Practitioner Family
DX: Z00.00 Encounter for general adult medical examination without abnormal findings (principal); M79.644 Pain in right finger(s)

== ENCOUNTER → 2024-01-25 10:06 | Outpatient (BNVA) | payer BC, SELFPAY | PROVIDERS: PCP Nurse Practitioner Family; Visit Provider Nurse Practitioner Family | DX: Z00.00 Encounter for general adult medical examination without abnormal findings (principal) | CPT/HCPCS: 96127 ==

== ENCOUNTER 2024-02-03 08:55 | Outpatient (REF) | payer BC, SELFPAY ==
[2024-02-03 11:44] LABS: Appearance Urine Cloudy; Color Urine Yellow; Glucose Urine UA Negative (Negative); Leukocyte Esterase Urine Large (3+) (Negative); Nitrite Urine Negative (Negative); PH 6.5 (5.0-9.0); Specific Gravity - Urine 1.015 (1.005-1.025); UMIC TRIGGER UACC YES; Urine Blood Negative (Negative); Urine Ketones Negative (Negative); Urine Protein Negative (Neg-Trace)
[2024-02-03 11:48] LABS: Bacteria Urine None Seen (None Seen); Hyaline Casts Urine 0-2 /LPF (0-2); RBC Urine 0-2 /HPF (0-2); Squamous Epithelial Cell Urine 0-2 /HPF (0-2); UACC Culture Trigger YES; WBC Urine >50 /HPF (0-5)
[2024-02-03 12:29] LABS: Cholesterol 125 mg/dL (<200); HDL Cholesterol 44 mg/dL (>40); LDL Cholesterol Calculated 57 mg/dL (<100); TSH reflex Free T4 2.19 uIU/mL (0.32-4.0); Triglycerides 121 mg/dL (<150)
== END 2024-02-03 08:56 | disposition home or self-care (01) ==
LOC: HO.WFDLDS 08:55
PROVIDERS: Visit Provider Nurse Practitioner Family
DX: Z00.00 Encounter for general adult medical examination without abnormal findings (principal); R82.90 Unspecified abnormal findings in urine
CPT/HCPCS: 36415; 80061; 81001; 84443; 87086

== ENCOUNTER 2024-06-19 09:46 | Outpatient (REF) | payer BC, SELFPAY ==
[2024-06-19 12:05] LABS: TSH reflex Free T4 2.38 uIU/mL (0.32-4.0)
== END 2024-06-19 09:47 | disposition home or self-care (01) ==
LOC: HO.WFDLDS 09:46
PROVIDERS: Visit Provider Nurse Practitioner Family
DX: E03.9 Hypothyroidism, unspecified (principal)
CPT/HCPCS: 36415; 84443

== ENCOUNTER 2024-07-07 09:27 | Outpatient (REF) | payer BC, SELFPAY ==
[2024-07-07 09:37] LABS: MANUAL DIFF FLAG NO
[2024-07-07 10:01] LABS: Basophils Absolute Auto 0.1 X10*3/uL (0.0-0.2); Basophils Percent Auto 0.9 % (0-2); Eosinophils Absolute Auto 0.6 X10*3/uL (0.0-0.4); Eosinophils Percent Auto 8.2 % (0-4); Hematocrit 45.4 % (42.0-52.0); Hemoglobin 15.7 g/dl (14.0-18.0); Imm Gran Abs Auto 0.03 X10*3/uL (0.00-0.03); Imm Gran Pct Auto 0.4 % (0.0-0.4); Lymphocytes Absolute Auto 2.1 X10*3/uL (1.2-4.9); Lymphocytes Percent Auto 27.2 % (20-40); Mean Corpuscular HGB Conc 34.6 g/dl (31.0-36.0); Mean Corpuscular Hemoglobin 30.4 pg (27.0-33.0); Mean Corpuscular Volume 87.8 fL (80.0-98.0); Mean Platelet Volume 9.6 fL (9.4-12.4); Monocytes Absolute Auto 0.6 X10*3/uL (0.1-1.2); Monocytes Percent Auto 7.5 % (2-11); Neutrophils Absolute Auto 4.4 x10*3/uL (2.0-8.3); Neutrophils Percent Auto 55.8 % (45-73); Platelet Count 231 X10*3/uL (160-400); Red Blood Count 5.17 X10*6/uL (4.60-5.80); Red Cell Distribution Width 12.2 % (11.0-16.0); White Blood Count 7.8 X10*3/uL (4.8-10.8)
[2024-07-07 10:29] LABS: Cholesterol 132 mg/dL (<200); HDL Cholesterol 41 mg/dL (>40); LDL Cholesterol Calculated 69 mg/dL (<100); Triglycerides 112 mg/dL (<150)
[2024-07-13 12:13] LABS: Testosterone, Free 38.8 pg/mL (35.0-155.0); Testosterone, Total 252 ng/dL (250-1100)
== END 2024-07-07 09:28 | disposition home or self-care (01) ==
LOC: HO.LAB 09:27
PROVIDERS: PCP Nurse Practitioner Family; Visit Provider Nurse Practitioner Family
DX: Z13.6 Encounter for screening for cardiovascular disorders (principal); Z79.890 Hormone replacement therapy
CPT/HCPCS: 36415; 80061; 84402; 84403; 85025

== ENCOUNTER 2024-08-27 14:24 | Outpatient (AMB) | payer BC, SELFPAY ==
--- NOTE | 2024-08-27 14:19 | MHC.PC.OV ---
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 He offers no complaints and denies acute symptoms at this time. [facility] Medical History Hypermobile joints Graves disease ADHD PTSD (post-traumatic stress disorder) Bipolar disorder Depression Anxiety Hx of radioactive iodine thyroid ablation Surgical History H/O mastectomy History of cochlear implant Family History Mother Psychiatric disorder Maternal Grandmother Psychiatric disorder Paternal Grandmother Diabetes Maternal Grandfather Psychiatric disorder Family/Other Psychiatric disorder Paternal Grandfather Prostate cancer Paternal Aunt Breast cancer Maternal Uncle Skin cancer Other Mental health disorder Social History Household Members: Friend(s) Housing: House Alcohol intake: current Alcohol intake frequency: other Alcohol type: beer Patient Tobacco Use Status: Never used Tobacco e-Cigarette/Vaping Use: Currently Using (cannabis vape) Substance Use Type: Marijuana service: No Current occupational status: employed Current occupation: [employer] Current occupational exposures/hazards: No Sexual orientation: Unable to collect Gender identity: Unable to collect Cognitive needs: No Hearing needs: No Vision needs: No Questionnaire Thrive Questionnaire Date Thrive assessed: 01/25/24 YASMIN-7 AMB Questionnaire YASMIN-7 Date YASMIN - 7 assessed: 01/25/24 Source: Developed by Drs. Carroll Stovall, Lianna Nevarez, Fernando Ferreira and colleagues, with an educational ayala from [employer]. Review of Systems Const Details: Denies chills, Denies fatigue, Denies fever(s), Denies headache(s) and Denies weakness Cardiac Denies chest pain, Denies claudication, Denies leg edema, Denies lightheadedness, Denies palpitations, Denies dyspnea, Denies dyspnea on exertion, Denies orthopnea and Denies other (Loss of consciousness) Resp Denies cough, Denies excessive phlegm production, Denies dyspnea, Denies dyspnea on exertion, Denies snoring and Denies wheezing Physical exam (Primary Care) Tobacco/Smoking Status: Tobacco use Status Tobacco use date assessed 08/27/24 08/27/24 14:22 Patient Tobacco Use Status Never used Tobacco 08/27/24 14:22 e-Cigarette/Vaping Use Currently Using 08/27/24 14:22 Thrive Assessment: Date of Thrive Assessment Date Thrive assessed 01/25/24 08/27/24 14:22 Const Other: José Miguel is alert and oriented x 3 Telehealth Telehealth Telehealth Platform: Telephone Location of provider rendering services: practice address Location of patient: address on file Patient Identification confirmed using: Name, : Yes Telehealth method: voice only Patient verbally consented to treatment: Yes Patient verbally consented to billing insurance company: Yes Patient informed of any privacy concerns related to visit: Yes Coding Level of Care Code Tele Est Pt Level 3 (04595) Diagnoses Acquired hypothyroidism E03.9 Long-term current use of testosterone replacement therapy Z79.890 Time Spent (min) 10 Assessment & Plan Assessment & Plan (1) Acquired hypothyroidism: Code(s): E03.9 - Hypothyroidism, unspecified Category: Medical Plan: Recent TSH is normal. Continue current treatment regimen. Follow-up for an extended physical exam after 01/24/2025. Return sooner with symptoms or concerns. Verbalized understanding and agreed with the plan. (2) Long-term current use of testosterone replacement therapy: Code(s): Z79.890 - Hormone replacement therapy Category: Medical Plan: Recent testosterone level is normal. Continue current treatment regimen. José Miguel was referred to Reproductive Endocrinology (lab results recently sent as requested). Awaiting review to be contacted to be contacted to schedule an appointment to establish care. Follow-up as needed. Verbalized understanding and agreed with the plan.
--- OUTSIDE RECORDS SUMMARY | 2024-08-27 15:13 | XMS_ITS | Clinical Summary ---
Author Organization 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 Active lorazepam (ATIVAN ORAL) Take by mouth. Active Active Problems Problem Noted Date Diagnosed Date Graves' disease 09/30/2014 Overview (01/14/2015): Graves disease; Diagnosed 03/2013 Uncoded Female to Male Transgender 09/30/2014 Overview (01/14/2015): Female to Male Transgender; social transition: 01/2012 hormonal transition: 09/2012 Sensorineural hearing loss 09/30/2014 Overview (01/14/2015): Sensorineural hearing loss; diagnosed at age 2 Family History Medical History Relation Comments Hearing loss Neg Hx Social History Tobacco Use Types Packs/Day Years Used Date Smoking Tobacco: Never Smokeless Tobacco: Never Alcohol Use Standard Drinks/Week Comments Yes 7 (1 standard drink = 0.6 oz pur e alcohol) Education Answer Date Recorded Are you interested in more education? Not on monet e 06/04/2022 Are you concerned about learning? Not on file 06/04/2022 No 06/04/2022 No 06/04/2022 Digital Access Answer Date Recorded No 07/05/2022 No 07/05/2022 No 07/05/2022 Reliable internet access at home? Not on file 07/05/2022 Device with a working camera? Not on file Sex and Gender Information Value Date Recorded Sex Assigned at Not on file Legal Sex Male 2:54 PM EDT Gender Identity Not on file Sexual Orientation Not on file Last Filed Vital Signs Vital Sign Reading Time Taken Comments Blood Pressure 132/81 11/10/2018 4:16 PM EDT Pulse 71 11/10/2018 4:16 PM EDT Temperature 36.7 C (98.1 F) 11/10/2018 4:16 PM EDT Respiratory Rate 14 11/10/2018 4:16 PM EDT Oxygen Saturation 99% 11/10/2018 4:16 PM EDT Inhaled Oxygen Concentration - - Weight 65 kg (143 lb 4.8 oz) 11/10/2018 4:16 PM EDT Height 167.6 cm (5' 6 ) 11/10/2018 4:16 PM EDT Body Mass Index 23.13 11/10/2018 4:16 PM EDT Plan of Treatment Health Maintenance Due Date Last Done Comments DEPRESSION SCREENING 2007 HEPATITIS C SCREENING 2013 HIV ONE-TIME SCREENING (18-65 YEARS) 2013 SMOKING STATUS SCREENING (Once After 26 Yrs) 2021 COVID-19 VACCINE ( season) 2023 12/09/2020, 05/17/2020 Adult Td,Tdap Booster 11/24/2030 11/24/2020 HIB VACCINES Completed 03/02/1996, 10/1995, 1995, Additional history exists PNEUMOCOCCAL VACCINES (0-49 years) Aged Out 10/03/2001 No longer eligible based on patient's age to complete this topic HEPATITIS A VACCINES Aged Out No long er eligible based on patient's age to complete this topic MENINGOCOCCAL VACCINES (ACWY) Aged Out No longer eligible based on patient's age to complete this topic MENINGOCOCCAL VACCINES (B) Aged Out N o longer eligible based on patient's age to complete this topic Medical Devices Not on file Insurance [address] [place], [place] [id number] POS EPO O POS EPO O POS EPO [address] [place], [place] [id number] POS EPO O POS EPO O POS [facility] Care Teams Precipitation Equipment Tender Relationship Specialty Start Date End Date Edison Pak NP PCP - General Nurse Practitioner 09/29/22 Additional Source Comments The information contained in this document represents components of the legal health record. It is not the complete legal health record.[facility]
== END 2024-08-27 15:12 | disposition home or self-care (01) ==
LOC: HO.HMCFM 14:24
PROVIDERS: PCP Nurse Practitioner Family; Visit Provider Nurse Practitioner Family
DX: E03.9 Hypothyroidism, unspecified (principal); Z79.890 Hormone replacement therapy

== ENCOUNTER → 2024-08-27 14:24 | Outpatient (BNVA) | payer BC, SELFPAY | PROVIDERS: PCP Nurse Practitioner Family; Visit Provider Nurse Practitioner Family | DX: E03.9 Hypothyroidism, unspecified (principal); Z79.890 Hormone replacement therapy | CPT/HCPCS: 98966 ==